=== PATIENT | male | born 1985 | race Caucasian/White ===

== ENCOUNTER 2022-06-14 10:29 | Inpatient (IN) ==
--- NOTE | 2022-06-14 11:45 | XRay Report ---
XR chest 1V portable HISTORY: 37 years-old Male weakness acute weakness COMPARISON: None TECHNIQUE: AP view of the chest FINDINGS: Cardiomediastinal and hilar silhouettes are within normal limits. Mild right hemidiaphragmatic elevat ion. There is no pneumothorax, pleural effusion, airspace consolidation or pulmonary edema. Bones of the chest appear grossly intact. IMPRESSION: No acute process. ACT 112: Negative or not required by law. The above report was generated using voice recognition software. It may contain grammatical, syntax o r spelling errors. Electronically signed by: Tan Hodgson M.D. 06/14/2022 11:42 AM
[2022-06-14 11:50] LABS: Basophils # (auto) 0.07 K/uL (0-0.2); Basophils % (auto) 1.2 %; Eosinophils % (auto) 1.6 %; Hematocrit (blood only) 34.6 % (40.1-51.0); Hemoglobin 12.5 g/dl (14.0-18.0); Immature Granulocytes # (auto) 0.02 K/uL (0.00-0.02); Immature Granulocytes % (auto) 0.3 %; Lymphocytes % (auto) 18.1 %; Macrocytosis Present; Mean Corpuscular Hemoglobin 38.5 pg (25.0-34.0); Mean Corpuscular Hgb Conc 36.1 g/dL (32.0-36.0); Mean Corpuscular Volume 106.5 fL (80.0-100.0); Mean Platelet Volume 11.8 fL (9.4-12.4); Monocytes # (auto) 0.64 K/uL (0.24-0.82); Monocytes % (auto) 10.5 %; Neutrophils # (auto) 4.14 K/uL (1.4-6.5); Neutrophils % (auto) 68.3 %; Platelet Count 74 K/uL (130-400); Platelet Estimate Decreased (Normal); RDW Coefficient of Variation 15.8 % (11.5-14.5); RDW Standard Deviation 62.3 fL (36.4-46.3); Red Blood Count 3.25 M/uL (4.63-6.08); Target Cells 1+; Toxic Vacuolation 1+; White Blood Count 6.07 K/ul (4.8-10.8)
[2022-06-14 11:56] LABS: Albumin Globulin Ratio 0.6 (0.9-2); Albumin Level 2.9 gm/dl (3.4-5.0); BUN Creatinine Ratio 12.2 (10-20); Calcium 8.2 mg/dl (8.5-10.1); Creatinine Clr Calc Pharmacy 95.8 ml/min; Est GFR (African American) 94.4 ml/min; Est GFR (Non-African American) 81.4 ml/min; Globulin 4.9 gm/dl (2.5-4.0); Potassium 3.5 mmol/L (3.5-5.1); Total Protein 7.8 gm/dl (6.0-8.3); Troponin I High Sensitivity 9.2 pg/ml (0-20)
[2022-06-14] MEDS ORDERED: MULTI-VITAMIN INFUSION 10 ML, THIAMINE HCL 100 MG, FOLIC ACID 1 MG in SODIUM CHLORIDE 0... IV ONE (12:16)
[2022-06-14 13:06] LABS: INR 1.9 (0.9-1.1); Prothrombin Time 19.3 Seconds (9.0-12.0)
--- NOTE | 2022-06-14 15:49 | Ultrasound Report ---
US liver HISTORY: 37 years-old Male Acute hepatitis acute right upper quadrant abdominal pain COMPARISON: None TECHNIQUE: Multiple real-time sonographic images of the abdominal right upper quadrant were obtained assessing grayscale appearance and color flow FINDINGS: The pancreas is mostly obscured by bowel gas. The liver measures 14 cm in length with slightly increa sed echogenicity. Patent portal vein with hepatofugal flow. Common bile duct measures 4 mm. Mild gall bladder distention with layering biliary sludge. No shadowing cholelithiasis, wall thickening or chiara cholecystic fluid. Limited exam secondary to patient body habitus. No hydronephrosis of the right kidney identified. IMPRESSION: 1. Heterogeneous morphology of the liver with mildly increased echogenicity. These findings may repre sent hepatic steatosis versus hepatocellular disease. 2. Patent portal vein demonstrates hepatofugal flow. 3. Biliary sludge. No cholelithiasis or sonographic evidence of acute cholecystitis. ACT 112: Negative or not required by law. The above report was generated using voice recognition software. It may contain grammatical, syntax o r spelling errors. Electronically signed by: Tan Hodgson M.D. 06/14/2022 3:47 PM
[2022-06-14] MEDS ORDERED: PHYTONADIONE 5 MG in DEXTROSE 5% 50 ML IV ONE (15:51)
--- NOTE | 2022-06-14 16:52 | Electrocardiogram Report ---
Test Reason : Blood Pressure : / mmHG Vent. Rate : 092 BPM Atrial Rate : 092 BPM P-R Int : 164 ms QRS Dur : 086 ms QT Int : 358 ms P-R-T Axes : 014 051 024 degrees QTc Int : 442 ms Poor data quality, interpretation may be adversely affected Normal sinus rhythm Normal ECG No previous ECGs available Confirmed by Jamie Burgos ([id number]) on 06/14/2022 4:52:36 PM Referred By: Confirmed By:Jamie Burgos
--- NOTE | 2022-06-14 17:04 | History & Physical Report ---
Date of Service June 14, 2022 Assessment & Plan (1) Alcoholic hepatitis: (2) Cirrhosis: (3) Elevated INR: (4) Hyponatremia: (5) Alcoholism: Plan: Patient is 37 y/o M with PMH alcoholism, tobacco use presented to ER from [facility] for abnormal labs. In rehab since 06/08/22. Last ETOH drink 06/08/[address] abdomen pelvis previously noted cirrhosis, portal hypertension In ER afebrile, vitals stable. No leukocytosis, H/H: 12.5/34, Plt: 74, PT:19, INR: 1.9, Na: 131, T bili: 9.0, AST: 88, ALT: 24, Alk Phos: 124, Albumin: 2.9 Liver US: 1. Heterogeneous morphology of the liver with mildly increased echogenicity. These findings may represent hepatic steatosis versus hepatocellular disease. 2. Patent portal vein demonstrates hepatofugal flow. 3. Biliary sludge. No cholelithiasis or sonographic evidence of acute cholecystitis. In ER given banana bag, phytonadione 5mg IV Prednisolone 40mg given Meld NA: 27 Madrey: 41 Hepatitis panel pending Blood cultures pending CT abdomen pelvis pending Lactulose 3 times daily Ultrasound paracentesis GI consult CBC, CMP, liver labs, ammonia, PT/INR in a.m. Alcohol cessation advised Patient has finished Valium taper at rehab. Last drink 6 days ago Boost Nutrition consult Multivitamin, thiamine, folic acid daily Dr. Baum spoke with [facility] as well as [facility]. Awaiting further callback (6) Tobacco use: Plan: Smokes 1ppd Smoking cessation encouraged Denies nicotine patch DVT Prophylaxis SCDs Full Code as per discussion with pt Follows with Dr Stalin Koo in [place] for routine care Pt was seen and care coordinated with Dr Baum. See addendum History of Present Illness Chief Complaint: Abnormal labs Primary Care Provider: Stalin Koo MD Patient is 37 y/o M with PMH alcoholism, tobacco use presented to ER from [facility] for abnormal labs. Patient in [facility] rehab since 06/08/22 for alcohol abuse after family intervention. History obtained from patient, patient's and chart review. Patient was drinking 15-30 beers daily as well as additional hard liquor. Has been drinking since age 17. He reports last ETOH drink was on 06/08/22. Reported patient had been having some confusion at rehab. Just started lactulose yesterday. Had one dose and had 3 BM's. No bowel movement today. Patient denies any abdominal pain. Patient's states in past he has been on lactulose intermittently. reports patient's abdomen appears larger than last week, however patient is unsure. Patient states he slipped out of bed this morning and landed on his knees. Reports has been having some dizziness with walking. Has been feeling weak past several days. Denies hitting head. Denies fever/chills, diaphoresis, nausea, vomiting, ASIF, syncope, vision changes, neck pain, CP, SOB, orthopnea, palpitations, cough, sore throat, choking, layne lgia, rhinorrhea, paresthesias, weakness, extremity weakness, increased extremity edema, rashes, urinary symptoms, melena, hematochezia. Outpatient records reviewed on paper ER chart. Was seen in ER in [place] in 05/22/22 and had abdomen ultrasound: gallbladder sludge. top normal wall thickening. CT abd/pelvis: sigmoid diverticulitis, cirrhosis and portal hypertension 05/12/22 had bilirubin of 3. In 06/10/22: outpatient labs bilirubin on 6.9 and 06/13/22 of 7.5 per chart review. In November 2021 Bilirubin WNL. Allergies Allergy/AdvReac Type Severity Reaction Status Date / Time No Known Allergies Allergy Unverified 06/14/22 13:37 Home Medications Medication Instructions Recorded Confirmed Type clonidine HCl 0.1 mg tablet 0.1 mg PO TID PRN Anxiety 06/14/22 06/14/22 History folic acid 1 mg tablet 1 mg PO DAILY 06/14/22 06/14/22 History food supplemt, lactose-reduced 1 ea PO BID 06/14/22 06/14/22 History (Ensure oral liquid) hydroxyzine pamoate 50 mg capsule 50 mg PO TID PRN LOS 06/14/22 06/14/22 History (Vistaril) lactulose 20 gram/30 mL oral 20 g PO TID 06/14/22 06/14/22 History solution multivitamin 1 tab PO DAILY 06/14/22 06/14/22 History thiamine HCl (vitamin B1) 100 mg 100 mg PO DAILY 06/14/22 06/14/22 History tablet Past Med/Surg History Medical History Alcoholism Tobacco use Surgical History Hx of tonsillectomy Family History Other Cancer Diabetes Hypertension Social History Smoking Status: Current every day smoker Tobacco Type: Cigarettes Cigarettes Per Day: 1 pack or less; Hx Alcohol Use: Yes Alcohol type: beer and hard liquor Hx Substance Use: No Beliefs That Will Affect Care: None Current Living Situation: Spouse and Family Feels Safe at Home: Yes Safety Concerns: Feels Safe At This Time Assistive Devices: None Review of Systems Review of Systems: All systems reviewed & are unremarkable except as noted in HPI & below Physical Exam Physical Exam: General: +ill appearing, WDWN Head: normocephalic, atraumatic Eyes: PERRL, EOM's intact, conjunctiva non-injected, +icteric ENT: normal inspection external ears, nose, mucous membranes moist Neck: supple, trachea midline Lungs: clear, no respiratory distress, no wheezing/rhonchi/rales CV: RRR, no murmur, no pretibial edema Abd: +distended, normal BS, soft, non-tender Ext: no cyanosis, no calf tenderness, +brown discoloration bilateral lower extremities Neuro: Alert and oriented to person, time and knows in hospital, unsure what hospital, no focal deficits noted, normal affect Skin: warm, dry Results & Data Results & Data ([facility]) Vital Signs (Past 12 Hours) Vital Signs Temp Pulse Resp BP Pulse Ox O2 Del Method O2 Flow Rate 06/14/22 14:10 80 23 99 06/14/22 14:00 82 21 98 06/14/22 14:00 115/72 06/14/22 13:50 82 21 98 06/14/22 13:40 79 20 98 06/14/22 13:30 78 20 98 06/14/22 13:20 83 23 97 06/14/22 13:10 80 23 98 06/14/22 13:00 83 19 97 06/14/22 12:50 85 14 98 06/14/22 12:40 88 17 97 06/14/22 12:30 86 18 96 06/14/22 12:30 92/58 L 06/14/22 12:20 86 18 97 06/14/22 12:10 91 H 19 97 06/14/22 12:00 96 H 22 97 06/14/22 12:00 98/59 L Room Air 06/14/22 11:50 91 H 18 112/80 97 Room Air 06/14/22 11:45 94 H 21 96 06/14/22 11:56 Room Air 97 06/14/22 10:33 36.7 C 110 H 18 114/78 99 Room Air Laboratory Results Short CBC 06/14/22 Range/Units 11:15 WBC 6.07 (4.8-10.8) K/ul Hgb 12.5 L (14.0-18.0) g/dl Hct 34.6 L (40.1-51.0) % Plt Count 74 L (130-400) K/uL BMP 06/14/22 11:15 Sodium 131 L Potassium 3.5 Chloride 99 Carbon Dioxide 26 BUN 14 Creatinine 1.15 Glucose 151 H Calcium 8.2 L Liver Function 06/14/22 Range/Units 11:15 Total Bilirubin 9.0 H (0.2-1.0) mg/dl AST 88 H (13-39) U/L ALT 24 (7-52) U/L Alkaline Phosphatase 124 H (34-104) U/L Albumin 2.9 L (3.4-5.0) gm/dl Diagnostic Findings Chest X-Ray 06/14/22 10:57 XR chest 1V portable HISTORY: 37 years-old Male weakness acute weakness COMPARISON: None TECHNIQUE: AP view of the chest FINDINGS: Cardiomediastinal and hilar silhouettes are within normal limits. Mild right hemidiaphragmatic elevation. There is no pneumothorax, pleural effusion, airspace consolidation or pulmonary edema. Bones of the chest appear grossly intact. IMPRESSION: No acute process. ACT 112: Negative or not required by law. The above report was generated using voice recognition software. It may contain grammatical, syntax or spelling errors. Electronically signed by: Tan Hodgson M.D. 06/14/2022 11:42 AM Liver Ultrasound 06/14/22 12:16 US liver HISTORY: 37 years-old Male Acute hepatitis acute right upper quadrant abdominal pain COMPARISON: None TECHNIQUE: Multiple real-time sonographic images of the abdominal right upper quadrant were obtained assessing grayscale appearance and color flow FINDINGS: The pancreas is mostly obscured by bowel gas. The liver measures 14 cm in length with slightly increased echogenicity. Patent portal vein with hepatofugal flow. Common bile duct measures 4 mm. Mild gallbladder distention with layering biliary sludge. No shadowing cholelithiasis, wall thickening or pericholecystic fluid. Limited exam secondary to patient body habitus. No hydronephrosis of the right kidney identified. IMPRESSION: 1. Heterogeneous morphology of the liver with mildly increased echogenicity. These findings may represent hepatic steatosis versus hepatocellular disease. 2. Patent portal vein demonstrates hepatofugal flow. 3. Biliary sludge. No cholelithiasis or sonographic evidence of acute cholecystitis. ACT 112: Negative or not required by law. The above report was generated using voice recognition software. It may contain grammatical, syntax or spelling errors. Electronically signed by: Tan Hodgson M.D. 06/14/2022 3:47 PM Supervising Physician Co-Signing Physician Notes Pt seen and examined by me, care coordinated with Estefany Xie PA-C, please refer to her note above for detail. Patient is a 37 y/o M with no significant medical history besides history of alcoholism, and tobacco use, who presents from [facility] for abnormal labs. [facility] for alcohol abuse after family intervention. Patient reports drinking since he was 17-year-old. About a week ago he was told by his family physician that he will from his liver disease and he is not a candidate for transplant because of his drinking. Patient decided to go to rehab. Patient's and sister present at the bedside. Pt reports last ETOH drink was on 06/08/22. Patient had been having some confusion at rehab. His ammonia level was found elevated, and he was started on lactulose. Today he fell from bed, and was sent to ER due to feeling dizzy and weak. Patient denies any abdominal pain. Outpatient records reviewed on paper ER chart. Was seen in ER in [place] in 05/22/22 and had abdomen ultrasound: gallbladder sludge. top normal wall thickening. CT abd/pelvis: sigmoid diverticulitis, cirrhosis and portal hypertension He was diagnosed with diverticulitis in ER in [place], and discharged with Augmentin. Patient reports finishing antibiotic course. 05/12/22 had bilirubin of 3. In 06/10/22: outpatient labs bilirubin on 6.9 and 06/13/22 of 7.5 per chart review. In November 2021 bilirubin WNL. Currently his sodium is 131. Bilirubin 9. INR 1.9. AST 88, ALT 24, PT 19.3. His meld score is 26 and Madrey score 42. Given his high meld score and Madrey score discussed with hepatology specialist at [facility] and at [facility]. Recommend to continue to monitor the patient. Prednisone for alcoholic hepatitis would be recommended however infection needs to be ruled out. UA negative in ER. Chest x-ray negative. Not likely SBP as patient has no abdominal pain. Known history of diverticulitis in May, as above. CT abdomen pelvis ordered. GI consulted. MD Sarika
--- NOTE | 2022-06-14 17:05 | Emergency Department Note ---
Impression & Plan Alcoholic hepatitis, Elevated INR, Hyponatremia ED Provider Note CHIEF COMPLAINT: Worsening liver numbers, dizziness, fall HISTORY OF PRESENT ILLNESS: This 37-year-old male patient presents to the emergency department with complaints of dizziness, worsening liver numbers and a fall today. The patient is at [facility] due to alcohol dependency. Patient began to appear jaundiced and had laboratory work performed. Per the records from the rehabilitation facility, the patient's bilirubin was 6 several days ago and 9 yesterday. They receive the results today. They were also concerned about a pneumonia of 80. The patient did start lactulose yesterday. He states he feels "drunk" but has not had anything to drink in over 10 days. He has been drinking since the age of 15 sometimes upwards of 15 beers a day. He states he was weak today getting out of bed and fell to the floor. He denies any significant injuries. He denies any blood in the stools or vomiting. REVIEW OF SYSTEMS: A review of systems was performed with positives and pertinent negatives listed in the history of present illness. 10 systems were reviewed and are otherwise negative. ALLERGIES: see below MEDICATIONS: see below PMH: see below SOCIAL HISTORY: see below DDx: PBC, cirrhosis of the liver, dehydration, metabolic abnormality, hypo/hyperglycemia, electrolyte disturbance, anemia, biliary obstruction, toxicologic, neurologic, as well as other pathologies. PHYSICAL EXAM: Vital signs reviewed. General: Chronically ill-appearing 37-year-old male HEENT: Positive scleral icterus, PERRLA, neck supple. Moist mucous membranes Cardiovascular: Regular rate and rhythm, no extra sounds. Pulmonary: Clear to auscultation bilaterally, normal work of breathing. Abdomen: Soft, distended, minimally tender diffusely, positive bowel sounds. Musculoskeletal: Atraumatic, no peripheral edema. Neurologic: Patient awake alert and oriented x 3, speech is clear Skin: Warm, dry, no rash EMERGENCY DEPARTMENT COURSE/MDM: This patient was evaluated and appeared to be in no significant distress. IV access was obtained and laboratory work was drawn. Patient is clearly jaundiced on exam. Ultrasound the right upper quadrant was performed and reveals findings consistent with liver disease versus hepatic steatosis but no evidence of portal vein thrombus. Laboratory work r eveals a total bili of 9 with an INR of 1.9. Platelet count is depleted at 74. The patient does not show any signs of alcohol withdrawal. I do feel the patient requires consultation with gastroenterology. The hospitalist service has been consulted for admission and further management. I did explain my findings and the plan to the patient and his family at the bedside. They are expressed understanding and agreed. MONITORING: An order for cardiac monitoring was placed and the patient is noted to be in a normal sinus rhythm at 76 beats per minute. RADIOLOGY: See below EKG: Normal sinus rhythm at 92 bpm. QTc is 442. Normal ST segments. No PVC, no PAC. No previous for comparison. DISPOSITION: Admission Past Med/Surg History Medical History Alcoholism Tobacco use Surgical History Hx of tonsillectomy Family History Other Cancer Diabetes Hypertension Social History Smoking Status: Current every day smoker Tobacco Type: Cigarettes Cigarettes Per Day: 1ppd; Hx Alcohol Use: Yes Hx Substance Use: No Feels Safe at Home: Yes Allergies Allergies Allergy/AdvReac Type Severity Reaction Status Date / Time No Known Allergies Allergy Unverified 06/14/22 13:37 Home Meds Home Medications Medication Instructions Recorded Confirmed clonidine HCl 0.1 mg tablet 0.1 mg PO TID PRN Anxiety 06/14/22 06/14/22 folic acid 1 mg tablet 1 mg PO DAILY 06/14/22 06/14/22 food supplemt, lactose-reduced 1 ea PO BID 06/14/22 06/14/22 (Ensure oral liquid) hydroxyzine pamoate 50 mg capsule 50 mg PO TID PRN LOS 06/14/22 06/14/22 (Vistaril) lactulose 20 gram/30 mL oral 20 g PO TID 06/14/22 06/14/22 solution multivitamin 1 tab PO DAILY 06/14/22 06/14/22 thiamine HCl (vitamin B1) 100 mg 100 mg PO DAILY 06/14/22 06/14/22 tablet Results & Data (ED) Vital Signs Vital Signs - 24 hr 06/14/22 10:33 06/14/22 11:56 06/14/22 11:45 Temperature 36.7 C Temperature Source Temporal Artery Scan Pulse Rate 110 H 94 H Pulse Rate from SpO2 Sensor 94 H Respiratory Rate 18 21 Blood Pressure 114/78 Blood Pressure Mean 90 Blood Pressure Position Sitting Pulse Oximetry 99 96 Oxygen Delivery Method Room Air Room Air Oxygen Flow Rate 97 Sepsis Recent Fever Within 48 Hours No Sepsis New/Unexplained Change in Mental Status No Sepsis Action Taken by Nursing No Action Required 06/14/22 11:50 06/14/22 12:00 06/14/22 12:00 Temperature Temperature Source Pulse Rate 91 H 96 H Pulse Rate from SpO2 Sensor 91 H 96 H Respiratory Rate 18 22 Blood Pressure 112/80 98/59 L Blood Pressure Mean 90 72 Blood Pressure Position Pulse Oximetry 97 97 Oxygen Delivery Method Room Air Room Air Oxygen Flow Rate Sepsis Recent Fever Within 48 Hours Sepsis New/Unexplained Change in Mental Status Sepsis Action Taken by Nursing 06/14/22 12:10 06/14/22 12:20 06/14/22 12:30 Temperature Temperature Source Pulse Rate 91 H 86 Pulse Rate from SpO2 Sensor 91 H 87 Respiratory Rate 19 18 Blood Pressure 92/58 L Blood Pressure Mean 69 Blood Pressure Position Pulse Oximetry 97 97 Oxygen Delivery Method Oxygen Flow Rate Sepsis Recent Fever Within 48 Hours Sepsis New/Unexplained Change in Mental Status Sepsis Action Taken by Nursing 06/14/22 12:30 06/14/22 12:40 06/14/22 12:50 Temperature Temperature Source Pulse Rate 86 88 85 Pulse Rate from SpO2 Sensor 86 87 84 Respiratory Rate 18 17 14 Blood Pressure Blood Pressure Mean Blood Pressure Position Pulse Oximetry 96 97 98 Oxygen Delivery Method Oxygen Flow Rate Sepsis Recent Fever Within 48 Hours Sepsis New/Unexplained Change in Mental Status Sepsis Action Taken by Nursing 06/14/22 13:00 06/14/22 13:10 06/14/22 13:20 Temperature Temperature Source Pulse Rate 83 80 83 Pulse Rate from SpO2 Sensor 83 80 82 Respiratory Rate 19 23 23 Blood Pressure Blood Pressure Mean Blood Pressure Position Pulse Oximetry 97 98 97 Oxygen Delivery Method Oxygen Flow Rate Sepsis Recent Fever Within 48 Hours Sepsis New/Unexplained Change in Mental Status Sepsis Action Taken by Nursing 06/14/22 13:30 06/14/22 13:40 06/14/22 13:50 Temperature Temperature Source Pulse Rate 78 79 82 Pulse Rate from SpO2 Sensor 78 80 83 Respiratory Rate 20 20 21 Blood Pressure Blood Pressure Mean Blood Pressure Position Pulse Oximetry 98 98 98 Oxygen Delivery Method Oxygen Flow Rate Sepsis Recent Fever Within 48 Hours Sepsis New/Unexplained Change in Mental Status Sepsis Action Taken by Nursing 06/14/22 14:00 06/14/22 14:00 06/14/22 14:10 Temperature Temperature Source Pulse Rate 82 80 Pulse Rate from SpO2 Sensor 82 80 Respiratory Rate 21 23 Blood Pressure 115/72 Blood Pressure Mean 86 Blood Pressure Position Pulse Oximetry 98 99 Oxygen Delivery Method Oxygen Flow Rate Sepsis Recent Fever Within 48 Hours Sepsis New/Unexplained Change in Mental Status Sepsis Action Taken by Nursing 06/14/22 16:45 06/14/22 17:00 06/14/22 17:00 Temperature Temperature Source Pulse Rate 76 81 Pulse Rate from SpO2 Sensor Respiratory Rate 18 20 Blood Pressure 105/52 L 111/66 111/66 Blood Pressure Mean 69 81 81 Blood Pressure Position Pulse Oximetry 96 96 Oxygen Delivery Method Room Air Room Air Oxygen Flow Rate Sepsis Recent Fever Within 48 Hours Sepsis New/Unexplained Change in Mental Status Sepsis Action Taken by Nursing 06/14/22 19:30 Temperature Temperature Source Pulse Rate 81 Pulse Rate from SpO2 Sensor 81 Respiratory Rate 23 Blood Pressure 107/65 Blood Pressure Mean 79 Blood Pressure Position Pulse Oximetry 96 Oxygen Delivery Method Oxygen Flow Rate Sepsis Recent Fever Within 48 Hours Sepsis New/Unexplained Change in Mental Status Sepsis Action Taken by [facility] Medications Current Medication List: was personally reviewed by me Laboratory Data Attestation: I reviewed the patient's lab results. Result diagrams: 06/14/22 11:15 06/14/22 11:15 Lab Results 06/14/22 06/14/22 06/14/22 Range/Units 11:15 11:15 11:15 WBC 6.07 (4.8-10.8) K/ul RBC 3.25 L (4.63-6.08) M/uL Hgb 12.5 L (14.0-18.0) g/dl Hct 34.6 L (40.1-51.0) % MCV 106.5 H (80.0-100.0) fL MCH 38.5 H (25.0-34.0) pg MCHC 36.1 H (32.0-36.0) g/dL RDW Std Deviation 62.3 H (36.4-46.3) fL RDW Coeff of Olivia 15.8 H (11.5-14.5) % Plt Count 74 L (130-400) K/uL MPV 11.8 (9.4-12.4) fL Immature Gran % (Auto) 0.3 % Neut % (Auto) 68.3 % Lymph % (Auto) 18.1 % Traverse % (Auto) 10.5 % Eos % (Auto) 1.6 % Baso % (Auto) 1.2 % Neut # (Auto) 4.14 (1.4-6.5) K/uL Lymph # (Auto) 1.10 L (1.2-3.4) K/uL Traverse # (Auto) 0.64 (0.24-0.82) K/uL Eos # (Auto) 0.10 (0-0.50) K/uL Baso # (Auto) 0.07 (0-0.2) K/uL Immature Gran # (Auto) 0.02 (0.00-0.02) K/uL Toxic Vacuolation 1+ Platelet Estimate Decreased L (Normal) Macrocytosis Present Target Cells 1+ PT (9.0-12.0) Seconds INR (0.9-1.1) Sodium 131 L (136-145) mmol/L Potassium 3.5 (3.5-5.1) mmol/L Chloride 99 (98-107) mmol/L Carbon Dioxide 26 (21-32) mmol/L Anion Gap 6 (3-11) BUN 14 (6-23) mg/dl Creatinine 1.15 (0.6-1.4) mg/dl Est Cr Clr Drug Dosing 95.8 ml/min Est GFR ( Amer) 94.4 ml/min Est GFR (Non-Af Amer) 81.4 ml/min BUN/Creatinine Ratio 12.2 (10-20) Glucose 151 H (70-99(Fasting)) mg/dl Calcium 8.2 L (8.5-10.1) mg/dl Phosphorus (2.5-4.9) mg/dl Magnesium (1.7-2.4) mg/dl Total Bilirubin 9.0 H (0.2-1.0) mg/dl AST 88 H (13-39) U/L ALT 24 (7-52) U/L Alkaline Phosphatase 124 H (34-104) U/L Ammonia 44.0 (18-72) umol/L Troponin I High Sens 9.2 (0-20) pg/ml Total Protein 7.8 (6.0-8.3) gm/dl Albumin 2.9 L (3.4-5.0) gm/dl Globulin 4.9 H (2.5-4.0) gm/dl Albumin/Globulin Ratio 0.6 L (0.9-2) TSH (0.300-4.500) uIu/ml Urine Color Urine Appearance (Clear) Urine pH (4.5-7.5) Ur Specific [place] (1.000-1.030) Urine Protein (Negative) Urine Glucose (UA) (Negative) Urine Ketones (Negative) Urine Blood (Negative) Urine Nitrite (Negative) Urine Bilirubin (Negative) Urine Urobilinogen (Negative) Ur Leukocyte Esterase (Negative) Urine WBC (Auto) (0-5) /hpf Urine RBC (Auto) (0-4) /hpf U Hyaline Cast (Auto) (0-5) /lpf U Epithel Cells (Auto) (0-5) /lpf Urine Bacteria (Auto) (Negative) SARS-CoV-2, RNA, NAAT (NEGATIVE) 06/14/22 06/14/22 06/14/22 Range/Units 11:15 11:15 12:37 WBC (4.8-10.8) K/ul RBC (4.63-6.08) M/uL Hgb (14.0-18.0) g/dl Hct (40.1-51.0) % MCV (80.0-100.0) fL MCH (25.0-34.0) pg MCHC (32.0-36.0) g/dL RDW Std Deviation (36.4-46.3) fL RDW Coeff of Olivia (11.5-14.5) % Plt Count (130-400) K/uL MPV (9.4-12.4) fL Immature Gran % (Auto) % Neut % (Auto) % Lymph % (Auto) % Traverse % (Auto) % Eos % (Auto) % Baso % (Auto) % Neut # (Auto) (1.4-6.5) K/uL Lymph # (Auto) (1.2-3.4) K/uL Traverse # (Auto) (0.24-0.82) K/uL Eos # (Auto) (0-0.50) K/uL Baso # (Auto) (0-0.2) K/uL Immature Gran # (Auto) (0.00-0.02) K/uL Toxic Vacuolation Platelet Estimate (Normal) Macrocytosis Target Cells PT 19.3 H (9.0-12.0) Seconds INR 1.9 H (0.9-1.1) Sodium (136-145) mmol/L Potassium (3.5-5.1) mmol/L Chloride (98-107) mmol/L Carbon Dioxide (21-32) mmol/L Anion Gap (3-11) BUN (6-23) mg/dl Creatinine (0.6-1.4) mg/dl Est Cr Clr Drug Dosing ml/min Est GFR ( Amer) ml/min Est GFR (Non-Af Amer) ml/min BUN/Creatinine Ratio (10-20) Glucose (70-99(Fasting)) mg/dl Calcium (8.5-10.1) mg/dl Phosphorus 2.8 (2.5-4.9) mg/dl Magnesium 1.4 L (1.7-2.4) mg/dl Total Bilirubin (0.2-1.0) mg/dl AST (13-39) U/L ALT (7-52) U/L Alkaline Phosphatase (34-104) U/L Ammonia (18-72) umol/L Troponin I High Sens (0-20) pg/ml Total Protein (6.0-8.3) gm/dl Albumin (3.4-5.0) gm/dl Globulin (2.5-4.0) gm/dl Albumin/Globulin Ratio (0.9-2) TSH 4.545 H (0.300-4.500) uIu/ml Urine Color Urine Appearance (Clear) Urine pH (4.5-7.5) Ur Specific [place] (1.000-1.030) Urine Protein (Negative) Urine Glucose (UA) (Negative) Urine Ketones (Negative) Urine Blood (Negative) Urine Nitrite (Negative) Urine Bilirubin (Negative) Urine Urobilinogen (Negative) Ur Leukocyte Esterase (Negative) Urine WBC (Auto) (0-5) /hpf Urine RBC (Auto) (0-4) /hpf U Hyaline Cast (Auto) (0-5) /lpf U Epithel Cells (Auto) (0-5) /lpf Urine Bacteria (Auto) (Negative) SARS-CoV-2, RNA, NAAT (NEGATIVE) 12/09/22 12/09/22 Range/Units 15:56 17:43 WBC (4.8-10.8) K/ul RBC (4.63-6.08) M/uL Hgb (14.0-18.0) g/dl Hct (40.1-51.0) % MCV (80.0-100.0) fL MCH (25.0-34.0) pg MCHC (32.0-36.0) g/dL RDW Std Deviation (36.4-46.3) fL RDW Coeff of Olivia (11.5-14.5) % Plt Count (130-400) K/uL MPV (9.4-12.4) fL Immature Gran % (Auto) % Neut % (Auto) % Lymph % (Auto) % [place] % (Auto) % Eos % (Auto) % Baso % (Auto) % Neut # (Auto) (1.4-6.5) K/uL Lymph # (Auto) (1.2-3.4) K/uL [place] # (Auto) (0.24-0.82) K/uL Eos # (Auto) (0-0.50) K/uL Baso # (Auto) (0-0.2) K/uL Immature Gran # (Auto) (0.00-0.02) K/uL Toxic Vacuolation Platelet Estimate (Normal) Macrocytosis Target Cells PT (9.0-12.0) Seconds INR (0.9-1.1) Sodium (136-145) mmol/L Potassium (3.5-5.1) mmol/L Chloride (98-107) mmol/L Carbon Dioxide (21-32) mmol/L Anion Gap (3-11) BUN (6-23) mg/dl Creatinine (0.6-1.4) mg/dl Est Cr Clr Drug Dosing ml/min Est GFR ( Amer) ml/min Est GFR (Non-Af Amer) ml/min BUN/Creatinine Ratio (10-20) Glucose (70-99(Fasting)) mg/dl Calcium (8.5-10.1) mg/dl Phosphorus (2.5-4.9) mg/dl Magnesium (1.7-2.4) mg/dl Total Bilirubin (0.2-1.0) mg/dl AST (13-39) U/L ALT (7-52) U/L Alkaline Phosphatase (34-104) U/L Ammonia (18-72) umol/L Troponin I High Sens (0-20) pg/ml Total Protein (6.0-8.3) gm/dl Albumin (3.4-5.0) gm/dl Globulin (2.5-4.0) gm/dl Albumin/Globulin Ratio (0.9-2) TSH (0.300-4.500) uIu/ml Urine Color Dark Yellow Urine Appearance Clear (Clear) Urine pH 6.5 (4.5-7.5) Ur Specific [place] 1.013 (1.000-1.030) Urine Protein Trace H (Negative) Urine Glucose (UA) Negative (Negative) Urine Ketones Negative (Negative) Urine Blood Negative (Negative) Urine Nitrite Positive A (Negative) Urine Bilirubin 3+ H (Negative) Urine Urobilinogen Positive H (Negative) Ur Leukocyte Esterase Trace H (Negative) Urine WBC (Auto) 1-5 (0-5) /hpf Urine RBC (Auto) 0-4 (0-4) /hpf U Hyaline Cast (Auto) 1-5 (0-5) /lpf U Epithel Cells (Auto) 10-20 H (0-5) /lpf Urine Bacteria (Auto) Negative (Negative) SARS-CoV-2, RNA, NAAT NEGATIVE (NEGATIVE) Administered Medications Discontinued Medications Multivitamins 10 ml/ Thiamine HCl 100 mg/ Folic Acid 1 mg/Sodium Chloride 1,011.2 mls @ 1,011.2 mls/hr IV .Q1H ONE Stop: 06/14/22 13:15 Last Infusion: 06/14/22 13:41 Dose: 0 mls/hr Documented By: [facility] Admin: 06/14/22 12:41 Dose: 1,011.2 mls/hr Documented By: EITAN Phytonadione 5 mg/ Dextrose 50.5 mls @ 101 mls/hr IV ONE ONE Stop: 06/14/22 16:20 Last Infusion: 06/14/22 17:27 Dose: 0 mls/hr Documented By: Admin: 06/14/22 16:46 Dose: 101 mls/hr Documented By: EITAN Prednisolone Sodium Phosphate (Prednisolone Sod Phosphate 15 Mg/5 Ml) 40 mg PO NOW STA Stop: 06/14/22 17:22 Last Admin: 06/14/22 18:02 Dose: 40 mg Documented By: [facility] Imaging Data Radiologist's Impression: Chest X-Ray 06/14/22 10:57 XR chest 1V portable HISTORY: 37 years-old Male weakness acute weakness COMPARISON: None TECHNIQUE: AP view of the chest FINDINGS: Cardiomediastinal and hilar silhouettes are within normal limits. Mild right hemidiaphragmatic elevation. There is no pneumothorax, pleural effusion, airspac e consolidation or pulmonary edema. Bones of the chest appear grossly intact. IMPRESSION: No acute process. ACT 112: Negative or not required by law. The above report was generated using voice recognition software. It may contain grammatical, syntax or spelling errors. Electronically signed by: Tan Hodgson M.D. 06/14/2022 11:42 AM Liver Ultrasound 06/14/22 12:16 US liver HISTORY: 37 years-old Male Acute hepatitis acute right upper quadrant abdominal pain COMPARISON: None TECHNIQUE: Multiple real-time sonographic images of the abdominal right upper quadrant were obtained assessing grayscale appearance and color flow FINDINGS: The pancreas is mostly obscured by bowel gas. The liver measures 14 cm in length with slightly increased echogenicity. Patent portal vein with hepatofugal flow. Common bile duct measures 4 mm. Mild gallbladder distention with layering biliary sludge. No shadowing cholelithiasis, wall thickening or pericholecystic fluid. Limited exam secondary to patient body habitus. No hydronephrosis of the right kidney identified. IMPRESSION: 1. Heterogeneous morphology of the liver with mildly increased echogenicity. These findings may represent hepatic steatosis versus hepatocellular disease. 2. Patent portal vein demonstrates hepatofugal flow. 3. Biliary sludge. No cholelithiasis or sonographic evidence of acute ch olecystitis. ACT 112: Negative or not required by law. The above report was generated using voice recognition software. It may contain grammatical, syntax or spelling errors. Electronically signed by: Tan Hodgson M.D. 06/14/2022 3:47 PM Blood Pressure Blood Pressure Findings: Normal blood pressure Blood Pressure Disposition: did not require urgent referral Discharge Plan Visit Data Chief Complaint: Dizziness Stated Complaint: DIZZY ED Provider: Nery Clarke Discharge Problem: Alcoholic hepatitis, Elevated INR, Hyponatremia Patient Disposition: Admitted As Inpatient Forms Stand Alone Forms: My [facility] Prescriptions Prescriptions: No Action multivitamin Tablet 1 tab PO DAILY clonidine HCl 0.1 mg Tablet 0.1 mg PO TID PRN (Reason: Anxiety ) thiamine HCl (vitamin B1) 100 mg Tablet 100 mg PO DAILY hydroxyzine pamoate [Vistaril] 50 mg Capsule 50 mg PO TID PRN (Reason: LOS) folic acid 1 mg Tablet 1 mg PO DAILY Ensure Liquid 1 ea PO BID lactulose 20 gram/30 mL Solution 20 g PO TID Referrals Referrals: Stalin Koo MD [Primary Care Provider] - : Alcoholic hepatitis Qualifiers: Ascites presence: unspecified Qualified Code(s): K70.10 - Alcoholic hepatitis without ascites
[2022-06-14] MEDS ORDERED: prednisoLONE sod phosphate 15 MG/5 ML PO STA (17:21)
[2022-06-14 18:05] LABS: Appearance Urine Clear (Clear); Bacteria Urine Automated Negative (Negative); Blood Urine Negative (Negative); Color Urine Dark Yellow; Glucose Urine UA Negative (Negative); Ketones Urine Negative (Negative); Leukocyte Esterase Urine Trace (Negative); Nitrite Urine Positive (Negative); Protein Urine Trace (Negative); RBC Urine Automated 0-4 /hpf (0-4); Specific Gravity Urine 1.013 (1.000-1.030); Urobilinogen Urine Positive (Negative); pH Urine 6.5 (4.5-7.5)
[2022-06-14 18:21] LABS: Bilirubin Urine 3+ (Negative)
[2022-06-14 19:04] LABS: Magnesium 1.4 mg/dl (1.7-2.4); Phosphorus 2.8 mg/dl (2.5-4.9)
--- NOTE | 2022-06-14 20:07 | CT Scan Report ---
CT SCAN OF THE ABDOMEN AND PELVIS WITHOUT IV CONTRAST CLINICAL HISTORY: Acute hepatitis. Alcohol abuse. Generalized abdominal pain. COMPARISON STUDY: Abdominal ultrasound dated 06/14/2022. TECHNIQUE: CT scan of the abdomen and pelvis is performed from the lung bases to the proximal femora. Images are reviewed in the axial, sagittal, and coronal planes. IV contrast was not administered for this examination. Note that the examination was performed in suboptimal fashion without oral and IV contrast. A dose lowering technique was utilized adhering to the principles of ALARA. CT DOSE: 746.92 mGy.cm FINDINGS: Lung bases: The heart is top normal in size and without pericardial effusion. The coronary arteries a re densely calcified. The lung bases are clear noting dependent atelectasis. Gynecomastia is noted. Liver: The unenhanced liver is cirrhotic in morphology, with hypertrophy of the left lobe and caudate as well as nodularity of the surface contour. Diffuse edematous attenuation indicates steatosis. The re is no intrahepatic biliary ductal dilatation. A 12 mm cyst is incidentally noted in the left lobe. Gallbladder: The gallbladder is distended. Layering hyperdense material may represent stones or sludg e. There is no wall thickening or surrounding inflammation to suggest acute cholecystitis. Spleen: The spleen is enlarged measuring 15.4 cm in length. There are large perisplenic collaterals w ith evidence of a splenorenal shunt. Pancreas: The unenhanced pancreas is grossly unremarkable. Adrenal glands: Unremarkable. Kidneys: The unenhanced kidneys are normal in size and without hydronephrosis. There are no renal julito culi identified. There is no evidence of contour deforming renal mass lesion. Abdominal vasculature: The abdominal aorta is normal in course and caliber noting moderate and advanc ed atherosclerotic calcification. Bowel: There is mild sigmoid diverticulosis. There is wall thickening with pericolonic inflammation a nd fluid involving the proximal sigmoid colon consistent with acute diverticulitis. A 1.8 cm pocket o f complex fluid or nodularity adjacent to the sigmoid is seen on image #[id number]. There is mild to moderat e colonic fecal retention. No bowel obstruction is seen. The appendix is well-visualized and normal. Peritoneum: There is no intraperitoneal free air or abdominal ascites. Lymphadenopathy: Mildly enlarged upper abdominal lymph nodes are nonspecific and likely due to chroni c liver disease. Pelvic viscera: The bladder, prostate, and seminal vesicles are normal as visualized. Skeletal structures: No lytic or blastic lesions are seen. 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 IMPRESSION: 1. There is mild sigmoid diverticulosis with findings suggestive of acute sigmoid diverticulitis. Non emergent follow-up with colonoscopy is recommended for further evaluation of the underlying colon. 2. No intraperitoneal free air is seen. 3. There is a 1.8 cm pocket of complex fluid or nodularity adjacent to the sigmoid colon. A small abs cess is not excluded. This is not well evaluated without IV contrast. 4. The liver is cirrhotic in morphology with evidence of steatosis. 5. Splenomegaly, perisplenic varices, and a splenorenal shunt indicate portal hypertension. 6. Markedly distended gallbladder with evidence of stones/sludge. There is no definitive CT evidence of acute cholecystitis. Clinical and laboratory correlation will be required. 7. Marked and age-advanced coronary artery calcification. Consider nonemergent cardiology follow-up. 8. Additional findings as above. ACT 112: Negative or not required by law. Electronically signed by: Dangelo Wong M.D. 06/14/2022 8:05 PM
[2022-06-14] MEDS ORDERED: LORazepam 1 MG TAB PO PRN (23:01)
[2022-06-14] MEDS ORDERED: cefTRIAXone SODIUM 1,000 MG in DEXTROSE 5% 50 ML IV SCH (23:01)
[2022-06-14] MEDS ORDERED: ONDANSETRON INJ 2 MG/ML 2 ML VIAL IV PRN (23:01)
[2022-06-14] MEDS ORDERED: cloNIDine HCL 0.1 MG TAB PO PRN (23:01)
[2022-06-15] MEDS: FOLIC ACID 1 MG in SYRINGE 9.8 ML IV SCH ×2 (00:02→09:01)
[2022-06-15] MEDS: THIAMINE HCL 100 MG in SYRINGE 9 ML IV SCH ×2 (00:02→09:00)
[2022-06-15] MEDS: LACTULOSE SYRUP 20 GM/30 ML UDC PO SCH ×4 (00:02→19:53)
[2022-06-15] MEDS: cefTRIAXone SODIUM 2,000 MG in DEXTROSE 5% 50 ML IV SCH ×2 (00:07→23:15)
[2022-06-15 06:13] LABS: INR 1.5 (0.9-1.1); Prothrombin Time 15.6 Seconds (9.0-12.0)
[2022-06-15 06:30] LABS: Albumin Globulin Ratio 0.6 (0.9-2); Albumin Level 2.8 gm/dl (3.4-5.0); BUN Creatinine Ratio 18.9 (10-20); Bilirubin Direct 4.6 mg/dl (0-0.2); Bilirubin,Total 8.6 mg/dl (0.2-1.0); Calcium 8.4 mg/dl (8.5-10.1); Est GFR (African American) 137.5 ml/min; Est GFR (Non-African American) 118.7 ml/min; Globulin 4.8 gm/dl (2.5-4.0); Magnesium 1.5 mg/dl (1.7-2.4); Phosphorus 3.5 mg/dl (2.5-4.9); Total Protein 7.6 gm/dl (6.0-8.3)
[2022-06-15 07:02] LABS: Hematocrit (blood only) 32.7 % (40.1-51.0); Mean Corpuscular Hgb Conc 36.7 g/dL (32.0-36.0); Mean Corpuscular Volume 103.5 fL (80.0-100.0); Mean Platelet Volume 11.6 fL (9.4-12.4); Platelet Count 75 K/uL (130-400); RDW Standard Deviation 57.8 fL (36.4-46.3); Red Blood Count 3.16 M/uL (4.63-6.08); White Blood Count 4.27 K/ul (4.8-10.8)
[2022-06-15] MEDS ORDERED: MAGNESIUM SULFATE / D5W 1 GM/100 ML BAG IV SCH (07:45)
--- NOTE | 2022-06-15 08:10 | Hospitalist Progress Note ---
Date of Service June 15, 2022 Assessment & Plan (1) Alcoholic hepatitis: (2) Cirrhosis: (3) Elevated INR: (4) Hyponatremia: (5) Alcoholism: Plan: Patient is 37 y/o M with H alcoholism, tobacco use presented to ER from [facility] for abnormal labs. In rehab since 06/08/22. Last ETOH drink 06/08/[address] abdomen pelvis previously noted cirrhosis, portal hypertension In ER afebrile, vitals stable. No leukocytosis, H/H: 12.5/34, Plt: 74, PT:19, INR: 1.9, Na: 131, T bili: 9.0, AST: 88, ALT: 24, Alk Phos: 124, Albumin: 2.9 Liver US: 1. Heterogeneous morphology of the liver with mildly increased echogenicity. These findings may represent hepatic steatosis versus hepatocellular disease. 2. Patent portal vein demonstrates hepatofugal flow. 3. Biliary sludge. No cholelithiasis or sonographic evidence of acute cholecystitis. In ER given banana bag, phytonadione 5mg IV Prednisolone 40mg given Meld score - 26 on admission Maddrey: 42 on admission Hepatitis panel pending Blood cultures pending Boost Nutrition consult Multivitamin, thiamine, folic acid daily Lactulose 3 times daily- continue CT abdomen pelvis 1. There is mild sigmoid diverticulosis with findings suggestive of acute sigmoid diverticulitis. Nonemergent follow-up with colonoscopy is recommended for further evaluation of the underlying colon. 2. No intraperitoneal free air is seen. 3. There is a 1.8 cm pocket of complex fluid or nodularity adjacent to the sigmoid colon. A small abscess is not excluded. This is not well evaluated without IV contrast. 4. The liver is cirrhotic in morphology with evidence of steatosis. 5. Splenomegaly, perisplenic varices, and a splenorenal shunt indicate portal hypertension. 6. Markedly distended gallbladder with evidence of stones/sludge. There is no definitive CT evidence of acute cholecystitis. Clinical and laboratory correlation will be required. 7. Marked and age-advanced coronary artery calcification. Consider nonemergent cardiology follow-up. GI and surgery consulted -Patient with diverticulitis, not likely abscess, also not likely cholecystitis - recommend to continue with IV antibiotics - obtain MRCP MRCP 1. No biliary ductal dilatation. No common bile duct calculi. 2. Suspected cirrhosis. Evidence for portal hypertension including splenomegaly and a splenorenal shunt. 3. Distended gallbladder containing sludge. However, no convincing evidence for acute cholecystitis. 4. Pancreas divisum. No pancreatic ductal dilatation. No peripancreatic fluid. Monitor CBC, CMP, liver labs, ammonia, PT/INR 06/15 -overall patient reports to feel better. MELD score - 23, Madrey score 25 Alcohol cessation advised Patient has finished Valium taper at rehab. Last drink 6 days ago (prior to admission) (6) Tobacco use: Plan: Smokes 1ppd Smoking cessation encouraged Denies nicotine patch DVT Prophylaxis SCDs Full Code as per discussion with pt Follows with Dr Stalin Koo in [place], [place] for routine care Admission and Anticipated Discharge Date Admission Date: June 14, 2022 Subjective Patient seen in follow-up of decompensated cirrhosis/alcoholic hepatitis. CT scan obtained overnight, shows possible diverticular abscess. Patient denies any abdominal pain, also denies any fevers chills chest pain shortness of breath. Denies nausea or vomiting. Review of Systems Review of Systems: All systems reviewed & are unremarkable except as noted in Subjective Physical Exam Physical Exam: General: + chronically ill appearing, obese M, jaundiced Head: normocephalic, atraumatic Eyes: PERRL, EOM's intact, conjunctiva non-injected, +icteric ENT: normal inspection external ears, nose, mucous membranes moist Neck: supple Lungs: clear, no respiratory distress, no wheezing/rhonchi/rales CV: RRR, no murmur, no pretibial edema Abd: +distended, normal BS, soft, non-tender Ext: +brown discoloration bilateral lower extremities Neuro: Alert and oriented to person, time, no focal deficits noted, normal affect, moves extremities Skin: warm, dry Results & Data Results & Data ([facility]) Vital Signs (Past 12 Hours) Vital Signs Temp Pulse Pulse Resp BP BP Pulse Ox 06/15/22 07:00 36.5 C 84 18 117/72 97 06/15/22 02:40 36.5 C 72 16 133/86 97 06/15/22 02:14 72 06/14/22 22:45 36.5 C 83 16 128/90 98 06/14/22 22:31 134/81 06/14/22 22:31 77 14 06/14/22 22:30 65 17 96 06/14/22 22:00 69 15 97 06/14/22 22:00 129/80 06/14/22 21:30 65 15 95 06/14/22 21:30 137/86 06/14/22 21:00 69 12 97 06/14/22 21:00 129/82 06/14/22 20:30 73 18 96 06/14/22 20:30 110/67 O2 Del Method 06/15/22 07:00 Room Air 06/15/22 02:40 Room Air 06/15/22 02:14 06/14/22 22:45 Room Air 06/14/22 22:31 06/14/22 22:31 06/14/22 22:30 06/14/22 22:00 06/14/22 22:00 06/14/22 21:30 06/14/22 21:30 06/14/22 21:00 06/14/22 21:00 06/14/22 20:30 06/14/22 20:30 Laboratory Results 06/15/22 06/15/22 06/15/22 Range/Units 05:54 05:54 05:54 WBC (4.8-10.8) K/ul RBC (4.63-6.08) M/uL Hgb (14.0-18.0) g/dl Hct (40.1-51.0) % MCV (80.0-100.0) fL MCH (25.0-34.0) pg MCHC (32.0-36.0) g/dL RDW Std Deviation (36.4-46.3) fL RDW Coeff of Olivia (11.5-14.5) % Plt Count (130-400) K/uL MPV (9.4-12.4) fL Immature Gran % (Auto) % Neut % (Auto) % Lymph % (Auto) % [place] % (Auto) % Eos % (Auto) % Baso % (Auto) % Neut # (Auto) (1.4-6.5) K/uL Lymph # (Auto) (1.2-3.4) K/uL [place] # (Auto) (0.24-0.82) K/uL Eos # (Auto) (0-0.50) K/uL Baso # (Auto) (0-0.2) K/uL Immature Gran # (Auto) (0.00-0.02) K/uL Toxic Vacuolation Platelet Estimate (Normal) Macrocytosis Target Cells PT 15.6 H (9.0-12.0) Seconds INR 1.5 H (0.9-1.1) Sodium 131 L (136-145) mmol/L Potassium 4.0 (3.5-5.1) mmol/L Chloride 104 (98-107) mmol/L Carbon Dioxide 21 (21-32) mmol/L Anion Gap 6 (3-11) BUN 14 (6-23) mg/dl Creatinine 0.74 D (0.6-1.4) mg/dl Est Cr Clr Drug Dosing 148.0 ml/min Est GFR ( Amer) 137.5 ml/min Est GFR (Non-Af Amer) 118.7 ml/min BUN/Creatinine Ratio 18.9 (10-20) Glucose 144 H (70-99(Fasting)) mg/dl Calcium 8.4 L (8.5-10.1) mg/dl Phosphorus 3.5 (2.5-4.9) mg/dl Magnesium 1.5 L (1.7-2.4) mg/dl Total Bilirubin 8.6 H (0.2-1.0) mg/dl Direct Bilirubin 4.6 H (0-0.2) mg/dl AST 76 H (13-39) U/L ALT 23 (7-52) U/L Alkaline Phosphatase 111 H (34-104) U/L Ammonia 71.0 (18-72) umol/L Troponin I High Sens (0-20) pg/ml Total Protein 7.6 (6.0-8.3) gm/dl Albumin 2.8 L (3.4-5.0) gm/dl Globulin 4.8 H (2.5-4.0) gm/dl Albumin/Globulin Ratio 0.6 L (0.9-2) TSH (0.300-4.500) uIu/ml Urine Color Urine Appearance (Clear) Urine pH (4.5-7.5) Ur Specific [place] (1.000-1.030) Urine Protein (Negative) Urine Glucose (UA) (Negative) Urine Ketones (Negative) Urine Blood (Negative) Urine Nitrite (Negative) Urine Bilirubin (Negative) Urine Urobilinogen (Negative) Ur Leukocyte Esterase (Negative) Urine WBC (Auto) (0-5) /hpf Urine RBC (Auto) (0-4) /hpf U Hyaline Cast (Auto) (0-5) /lpf U Epithel Cells (Auto) (0-5) /lpf Urine Bacteria (Auto) (Negative) Hepatitis A IgM Ab Hep Bs Antigen Hep Bs Ag Confirmation Hep B Core IgM Ab Hepatitis C Ab (EIA) Hep C Ab Signal/Cutoff SARS-CoV-2, RNA, NAAT (NEGATIVE) 06/15/22 06/14/22 06/14/22 Range/Units 05:54 17:43 15:56 WBC 4.27 L (4.8-10.8) K/ul RBC 3.16 L (4.63-6.08) M/uL Hgb 12.0 L (14.0-18.0) g/dl Hct 32.7 L (40.1-51.0) % MCV 103.5 H (80.0-100.0) fL MCH 38.0 H (25.0-34.0) pg MCHC 36.7 H (32.0-36.0) g/dL RDW Std Deviation 57.8 H (36.4-46.3) fL RDW Coeff of Olivia 15.0 H (11.5-14.5) % Plt Count 75 L (130-400) K/uL MPV 11.6 (9.4-12.4) fL Immature Gran % (Auto) % Neut % (Auto) % Lymph % (Auto) % [place] % (Auto) % Eos % (Auto) % Baso % (Auto) % Neut # (Auto) (1.4-6.5) K/uL Lymph # (Auto) (1.2-3.4) K/uL [place] # (Auto) (0.24-0.82) K/uL Eos # (Auto) (0-0.50) K/uL Baso # (Auto) (0-0.2) K/uL Immature Gran # (Auto) (0.00-0.02) K/uL Toxic Vacuolation Platelet Estimate (Normal) Macrocytosis Target Cells PT (9.0-12.0) Seconds INR (0.9-1.1) Sodium (136-145) mmol/L Potassium (3.5-5.1) mmol/L Chloride (98-107) mmol/L Carbon Dioxide (21-32) mmol/L Anion Gap (3-11) BUN (6-23) mg/dl Creatinine (0.6-1.4) mg/dl Est Cr Clr Drug Dosing ml/min Est GFR ( Amer) ml/min Est GFR (Non-Af Amer) ml/min BUN/Creatinine Ratio (10-20) Glucose (70-99(Fasting)) mg/dl Calcium (8.5-10.1) mg/dl Phosphorus (2.5-4.9) mg/dl Magnesium (1.7-2.4) mg/dl Total Bilirubin (0.2-1.0) mg/dl Direct Bilirubin (0-0.2) mg/dl AST (13-39) U/L ALT (7-52) U/L Alkaline Phosphatase (34-104) U/L Ammonia (18-72) umol/L Troponin I High Sens (0-20) pg/ml Total Protein (6.0-8.3) gm/dl Albumin (3.4-5.0) gm/dl Globulin (2.5-4.0) gm/dl Albumin/Globulin Ratio (0.9-2) TSH (0.300-4.500) uIu/ml Urine Color Dark Yellow Urine Appearance Clear (Clear) Urine pH 6.5 (4.5-7.5) Ur Specific [place] 1.013 (1.000-1.030) Urine Protein Trace H (Negative) Urine Glucose (UA) Negative (Negative) Urine Ketones Negative (Negative) Urine Blood Negative (Negative) Urine Nitrite Positive A (Negative) Urine Bilirubin 3+ H (Negative) Urine Urobilinogen Positive H (Negative) Ur Leukocyte Esterase Trace H (Negative) Urine WBC (Auto) 1-5 (0-5) /hpf Urine RBC (Auto) 0-4 (0-4) /hpf U Hyaline Cast (Auto) 1-5 (0-5) /lpf U Epithel Cells (Auto) 10-20 H (0-5) /lpf Urine Bacteria (Auto) Negative (Negative) Hepatitis A IgM Ab Hep Bs Antigen Hep Bs Ag Confirmation Hep B Core IgM Ab Hepatitis C Ab (EIA) Hep C Ab Signal/Cutoff SARS-CoV-2, RNA, NAAT NEGATIVE (NEGATIVE) 06/14/22 06/14/22 06/14/22 Range/Units 12:37 12:37 11:15 WBC (4.8-10.8) K/ul RBC (4.63-6.08) M/uL Hgb (14.0-18.0) g/dl Hct (40.1-51.0) % MCV (80.0-100.0) fL MCH (25.0-34.0) pg MCHC (32.0-36.0) g/dL RDW Std Deviation (36.4-46.3) fL RDW Coeff of Olivia (11.5-14.5) % Plt Count (130-400) K/uL MPV (9.4-12.4) fL Immature Gran % (Auto) % Neut % (Auto) % Lymph % (Auto) % [place] % (Auto) % Eos % (Auto) % Baso % (Auto) % Neut # (Auto) (1.4-6.5) K/uL Lymph # (Auto) (1.2-3.4) K/uL [place] # (Auto) (0.24-0.82) K/uL Eos # (Auto) (0-0.50) K/uL Baso # (Auto) (0-0.2) K/uL Immature Gran # (Auto) (0.00-0.02) K/uL Toxic Vacuolation Platelet Estimate (Normal) Macrocytosis Target Cells PT 19.3 H (9.0-12.0) Seconds INR 1.9 H (0.9-1.1) Sodium (136-145) mmol/L Potassium (3.5-5.1) mmol/L Chloride (98-107) mmol/L Carbon Dioxide (21-32) mmol/L Anion Gap (3-11) BUN (6-23) mg/dl Creatinine (0.6-1.4) mg/dl Est Cr Clr Drug Dosing ml/min Est GFR ( Amer) ml/min Est GFR (Non-Af Amer) ml/min BUN/Creatinine Ratio (10-20) Glucose (70-99(Fasting)) mg/dl Calcium (8.5-10.1) mg/dl Phosphorus 2.8 (2.5-4.9) mg/dl Magnesium 1.4 L (1.7-2.4) mg/dl Total Bilirubin (0.2-1.0) mg/dl Direct Bilirubin (0-0.2) mg/dl AST (13-39) U/L ALT (7-52) U/L Alkaline Phosphatase (34-104) U/L Ammonia (18-72) umol/L Troponin I High Sens (0-20) pg/ml Total Protein (6.0-8.3) gm/dl Albumin (3.4-5.0) gm/dl Globulin (2.5-4.0) gm/dl Albumin/Globulin Ratio (0.9-2) TSH (0.300-4.500) uIu/ml Urine Color Urine Appearance (Clear) Urine pH (4.5-7.5) Ur Specific [place] (1.000-1.030) Urine Protein (Negative) Urine Glucose (UA) (Negative) Urine Ketones (Negative) Urine Blood (Negative) Urine Nitrite (Negative) Urine Bilirubin (Negative) Urine Urobilinogen (Negative) Ur Leukocyte Esterase (Negative) Urine WBC (Auto) (0-5) /hpf Urine RBC (Auto) (0-4) /hpf U Hyaline Cast (Auto) (0-5) /lpf U Epithel Cells (Auto) (0-5) /lpf Urine Bacteria (Auto) (Negative) Hepatitis A IgM Ab Pending Hep Bs Antigen Pending Hep Bs Ag Confirmation Pending Hep B Core IgM Ab Pending Hepatitis C Ab (EIA) Pending Hep C Ab Signal/Cutoff Pending SARS-CoV-2, RNA, NAAT (NEGATIVE) 06/14/22 06/14/22 06/14/22 Range/Units 11:15 11:15 11:15 WBC (4.8-10.8) K/ul RBC (4.63-6.08) M/uL Hgb (14.0-18.0) g/dl Hct (40.1-51.0) % MCV (80.0-100.0) fL MCH (25.0-34.0) pg MCHC (32.0-36.0) g/dL RDW Std Deviation (36.4-46.3) fL RDW Coeff of Olivia (11.5-14.5) % Plt Count (130-400) K/uL MPV (9.4-12.4) fL Immature Gran % (Auto) % Neut % (Auto) % Lymph % (Auto) % [place] % (Auto) % Eos % (Auto) % Baso % (Auto) % Neut # (Auto) (1.4-6.5) K/uL Lymph # (Auto) (1.2-3.4) K/uL [place] # (Auto) (0.24-0.82) K/uL Eos # (Auto) (0-0.50) K/uL Baso # (Auto) (0-0.2) K/uL Immature Gran # (Auto) (0.00-0.02) K/uL Toxic Vacuolation Platelet Estimate (Normal) Macrocytosis Target Cells PT (9.0-12.0) Seconds INR (0.9-1.1) Sodium 131 L (136-145) mmol/L Potassium 3.5 (3.5-5.1) mmol/L Chloride 99 (98-107) mmol/L Carbon Dioxide 26 (21-32) mmol/L Anion Gap 6 (3-11) BUN 14 (6-23) mg/dl Creatinine 1.15 (0.6-1.4) mg/dl Est Cr Clr Drug Dosing 95.8 ml/min Est GFR ( Amer) 94.4 ml/min Est GFR (Non-Af Amer) 81.4 ml/min BUN/Creatinine Ratio 12.2 (10-20) Glucose 151 H (70-99(Fasting)) mg/dl Calcium 8.2 L (8.5-10.1) mg/dl Phosphorus (2.5-4.9) mg/dl Magnesium (1.7-2.4) mg/dl Total Bilirubin 9.0 H (0.2-1.0) mg/dl Direct Bilirubin (0-0.2) mg/dl AST 88 H (13-39) U/L ALT 24 (7-52) U/L Alkaline Phosphatase 124 H (34-104) U/L Ammonia 44.0 (18-72) umol/L Troponin I High Sens 9.2 (0-20) pg/ml Total Protein 7.8 (6.0-8.3) gm/dl Albumin 2.9 L (3.4-5.0) gm/dl Globulin 4.9 H (2.5-4.0) gm/dl Albumin/Globulin Ratio 0.6 L (0.9-2) TSH 4.545 H (0.300-4.500) uIu/ml Urine Color Urine Appearance (Clear) Urine pH (4.5-7.5) Ur Specific [place] (1.000-1.030) Urine Protein (Negative) Urine Glucose (UA) (Negative) Urine Ketones (Negative) Urine Blood (Negative) Urine Nitrite (Negative) Urine Bilirubin (Negative) Urine Urobilinogen (Negative) Ur Leukocyte Esterase (Negative) Urine WBC (Auto) (0-5) /hpf Urine RBC (Auto) (0-4) /hpf U Hyaline Cast (Auto) (0-5) /lpf U Epithel Cells (Auto) (0-5) /lpf Urine Bacteria (Auto) (Negative) Hepatitis A IgM Ab Hep Bs Antigen Hep Bs Ag Confirmation Hep B Core IgM Ab Hepatitis C Ab (EIA) Hep C Ab Signal/Cutoff SARS-CoV-2, RNA, NAAT (NEGATIVE) 06/14/22 Range/Units 11:15 WBC 6.07 (4.8-10.8) K/ul RBC 3.25 L (4.63-6.08) M/uL Hgb 12.5 L (14.0-18.0) g/dl Hct 34.6 L (40.1-51.0) % MCV 106.5 H (80.0-100.0) fL MCH 38.5 H (25.0-34.0) pg MCHC 36.1 H (32.0-36.0) g/dL RDW Std Deviation 62.3 H (36.4-46.3) fL RDW Coeff of Olivia 15.8 H (11.5-14.5) % Plt Count 74 L (130-400) K/uL MPV 11.8 (9.4-12.4) fL Immature Gran % (Auto) 0.3 % Neut % (Auto) 68.3 % Lymph % (Auto) 18.1 % [place] % (Auto) 10.5 % Eos % (Auto) 1.6 % Baso % (Auto) 1.2 % Neut # (Auto) 4.14 (1.4-6.5) K/uL Lymph # (Auto) 1.10 L (1.2-3.4) K/uL [place] # (Auto) 0.64 (0.24-0.82) K/uL Eos # (Auto) 0.10 (0-0.50) K/uL Baso # (Auto) 0.07 (0-0.2) K/uL Immature Gran # (Auto) 0.02 (0.00-0.02) K/uL Toxic Vacuolation 1+ Platelet Estimate Decreased L (Normal) Macrocytosis Present Target Cells 1+ PT (9.0-12.0) Seconds INR (0.9-1.1) Sodium (136-145) mmol/L Potassium (3.5-5.1) mmol/L Chloride (98-107) mmol/L Carbon Dioxide (21-32) mmol/L Anion Gap (3-11) BUN (6-23) mg/dl Creatinine (0.6-1.4) mg/dl Est Cr Clr Drug Dosing ml/min Est GFR ( Amer) ml/min Est GFR (Non-Af Amer) ml/min BUN/Creatinine Ratio (10-20) Glucose (70-99(Fasting)) mg/dl Calcium (8.5-10.1) mg/dl Phosphorus (2.5-4.9) mg/dl Magnesium (1.7-2.4) mg/dl Total Bilirubin (0.2-1.0) mg/dl Direct Bilirubin (0-0.2) mg/dl AST (13-39) U/L ALT (7-52) U/L Alkaline Phosphatase (34-104) U/L Ammonia (18-72) umol/L Troponin I High Sens (0-20) pg/ml Total Protein (6.0-8.3) gm/dl Albumin (3.4-5.0) gm/dl Globulin (2.5-4.0) gm/dl Albumin/Globulin Ratio (0.9-2) TSH (0.300-4.500) uIu/ml Urine Color Urine Appearance (Clear) Urine pH (4.5-7.5) Ur Specific [place] (1.000-1.030) Urine Protein (Negative) Urine Glucose (UA) (Negative) Urine Ketones (Negative) Urine Blood (Negative) Urine Nitrite (Negative) Urine Bilirubin (Negative) Urine Urobilinogen (Negative) Ur Leukocyte Esterase (Negative) Urine WBC (Auto) (0-5) /hpf Urine RBC (Auto) (0-4) /hpf U Hyaline Cast (Auto) (0-5) /lpf U Epithel Cells (Auto) (0-5) /lpf Urine Bacteria (Auto) (Negative) Hepatitis A IgM Ab Hep Bs Antigen Hep Bs Ag Confirmation Hep B Core IgM Ab Hepatitis C Ab (EIA) Hep C Ab Signal/Cutoff SARS-CoV-2, RNA, NAAT (NEGATIVE) Medications Administered Current Inpatient Medications Clonidine HCl (Clonidine Hcl 0.1 Mg Tab) 0.1 mg PO TID PRN PRN Reason: Hypertension Stop: 07/14/22 23:00 Thiamine HCl 100 mg/ Syringe 10 mls @ 2 mls/min IV QAM [facility] Stop: 07/14/22 23:00 Last Admin: 06/15/22 00:02 Dose: 2 mls/min Folic Acid 1 mg/ Syringe 10 mls @ 5 mls/min IV QAM [facility] Stop: 07/14/22 23:00 Last Admin: 06/15/22 00:02 Dose: 5 mls/min Ceftriaxone Sodium 2,000 mg/ (Dextrose) 70 mls @ 140 mls/hr IV Q24H [facility] Stop: 06/17/22 00:00 Last Infusion: 06/15/22 00:44 Dose: Infused Metronidazole (Flagyl) 500 mg in 100 mls @ 100 mls/hr IV Q8H [facility]; Protocol Stop: 06/25/22 07:59 Cefepime HCl 2,000 mg/ Syringe 20 mls @ 5 mls/min IV Q8H [facility]; Protocol Stop: 06/25/22 07:59 Magnesium Sulfate/Dextrose (Magnesium Sulfate / D5w) 1 gm in 100 mls @ 50 mls/hr IV TODAY@0745 [facility] Stop: 06/15/22 09:44 Lactulose (Lactulose Syrup 20 Gm/30 Ml Udc) 20 gm PO TID [facility] Stop: 07/14/22 23:00 Last Admin: 06/15/22 00:02 Dose: 20 gm Lorazepam (Lorazepam 1 Mg Tab) 1 mg PO ONE PRN; Protocol PRN Reason: EtoH Withdrawal AWSS 6,7,8,9,1 Magnesium Oxide (Magnesium Oxide 400 Mg Tab) 400 mg PO QAM [facility] Stop: 07/15/22 08:59 Multivitamins (Multivitamin Tab) 1 tab PO QAM [facility] Stop: 07/15/22 08:59 Ondansetron HCl (Ondansetron Inj 2 Mg/Ml 2 Ml Vial) 4 mg IV Q6H PRN PRN Reason: Nausea Stop: 07/14/22 23:00 Prednisolone Sodium Phosphate (Prednisolone Sod Phosphate 15 Mg/5 Ml) 40 mg PO DAILY [facility] Stop: 07/15/22 08:59 (1) Alcoholic hepatitis Ascites presence: unspecified Qualified Code(s): K70.10 - Alcoholic hepatitis without ascites
--- NOTE | 2022-06-15 08:31 | Surgery Consultation ---
Date of Consultation June 15, 2022 Assessment & Plan (1) Sigmoid diverticulitis: (2) Biliary sludge: Patient has been admitted on the hospitalist service. Recommend proceeding as follows: At the present time it does not appear that the patient is suffering from acute cholecystitis or biliary colic. Also in addition his appear as though he is having any abdominal complaints concerning sigmoid diverticulitis. Maintain n.p.o. status Continue antibiotics in the form of Rocephin and cefepime Provide IV fluid for hydration Measures have been implemented for potential alcohol withdrawal including thiamine and folic acid along with magnesium which should continue Is unclear if the patient's elevated LFTs are related to biliary pathology or merely related to his heavy alcohol use Gastroenterology consultation has been requested and we will follow for the results of this prior to entertaining any surgical intervention Supervising Physician Co-Signing Physician Notes Patient seen and examined, labs and imaging reviewed, agree with above. 37-year-old male with significant alcohol abuse history transferred from rehab due to abnormal labs. He denies any belly pain. He had a CT scan which showed a distended gallbladder with no evidence of cholecystitis, cirrhotic liver, and some mild diverticulitis with associated 1 cm phlegmon. On exam he is afebrile with stable vitals. He is jaundiced. His abdomen is soft, nontender, nondistended. Labs reviewed, WBC normal, LFTs mildly elevated with a mixed hyperbilirubinemia. I personally reviewed and interpreted the CT scan myself and agree with the assessment of a cirrhotic morphology to the liver with a distended gallbladder with no evidence of cholecystitis. There is some mild inflammation around the sigmoid colon with diverticula which likely represents a mild diverticulitis of the patient is relatively asymptomatic. The area of concern appears to be more of a phlegmon than anything. Recommend IV antibiotics for treatment of the diverticulitis with advancement of diet as tolerated to low fiber. Outpatient colonoscopy in the future. Regarding his gallbladder there is not appear to be any evidence of cholecystitis. His hyperbilirubinemia is a mixed picture and is likely related to his cirrhotic liver and alcoholic hepatopathy. Recommend GI consult for this. Any further concerns should warrant ultrasound, and MRCP or HIDA scan. Surgery will follow peripherally, call with questions or concerns. History of Present Illness Reason for Consultation: Diverticulitis with possible abscess and possible acute cholecystitis Attending Physician: Enzo Baum MD History of Present Illness This is a 37-year-old male with a history of alcoholism. Patient reports he was drinking anywhere between 15 and 30 beers in addition to hard liquor daily. He has been drinking heavily since age of 17. Reportedly his last alcoholic beverage was on 06/08/2022. The patient was most recently at [facility] for alcohol rehab when he was sent to the emergency department secondary to abnormal laboratories. At the time of my interview the patient denies any abdominal pain. He denies any nausea or vomiting. He denies any fevers, shakes, or chills. Should be noted that the patient denies any history of prior colonoscopies and he denies any prior history of previous abdominal surgeries. He notes that he has never had diverticulitis in the past. Since arrival to the hospital the patient has had labs and imaging which independent reviewed. Chest x-ray showed no evidence of pneumonia. Patient did have a liver ultrasound that showed findings concerning for hepatic steatosis versus hepatocellular disease. He was noted to have biliary sludge with no cholelithiasis and no evidence of acute cholecystitis. The gallbladder was noted to be mildly distended with some biliary sludge. A CT scan of the abdomen and pelvis did show the patient had some mild sigmoid diverticulosis with some findings concerning for acute diverticulitis. There is also a 1.8 cm pocket of fluid near the sigmoid colon concerning for a potential abscess. The liver appeared cirrhotic on the study. The gallbladder appeared distended with evidence of sludge and possible stones but no evidence of acute cholecystitis. No intraperitoneal free air or abdominal ascites was noted. Labs include a CBC her white blood cell count was 4.2. Hemoglobin and hematocrit are 12.0 and 32.7. Platelet count was 75,000. His INR is noted to be 1.5. (It was 1.9 at time of admission). Chemistry profile today showed a sodium of 131 with a potassium in the normal range. His BUN and creatinine were both normal. The patient's total bilirubin was 8.6 and his direct bilirubin was 4.7. His AST was elevated at 76 with a normal ALT. Alkaline phosphatase was elevated at 111. Hepatitis profile has been ordered and is pending. A COVID test is negative. At the time of my interview he was resting comfortably in bed he was in no distress. Allergies Allergy/AdvReac Type Severity Reaction Status Date / Time No Known Allergies Allergy Unverified 06/14/22 13:37 Home Medications Medication Instructions Recorded Confirmed Type clonidine HCl 0.1 mg tablet 0.1 mg PO TID PRN Anxiety 06/14/22 06/14/22 History folic acid 1 mg tablet 1 mg PO DAILY 06/14/22 06/14/22 History food supplemt, lactose-reduced 1 ea PO BID 06/14/22 06/14/22 History (Ensure oral liquid) hydroxyzine pamoate 50 mg capsule 50 mg PO TID PRN LOS 06/14/22 06/14/22 History (Vistaril) lactulose 20 gram/30 mL oral 20 g PO TID 06/14/22 06/14/22 History solution multivitamin 1 tab PO DAILY 06/14/22 06/14/22 History thiamine HCl (vitamin B1) 100 mg 100 mg PO DAILY 06/14/22 06/14/22 History tablet Patient History Medical History Alcoholism Tobacco use Surgical History Hx of tonsillectomy Family History Other Cancer Diabetes Hypertension Social History Smoking Status: Current every day smoker Tobacco Type: Cigarettes Cigarettes Per Day: 1 pack or less; Hx Alcohol Use: Yes Alcohol type: beer and hard liquor Hx Substance Use: No Beliefs That Will Affect Care: None Current Living Situation: Spouse and Family Feels Safe at Home: Yes Safety Concerns: Feels Safe At This Time Assistive Devices: None Review of Systems Constitutional: no fever and no chills Eyes: no eye pain Ear, Nose, Mouth, Throat: no ear pain Respiratory: no cough and no dyspnea Cardiovascular: no chest pain Gastrointestinal: no abdominal pain, no nausea and no vomiting Genitourinary: no dysuria Musculoskeletal: no back pain Integumentary: no rash Neurologic: no localized weakness Physical Exam Constitutional: well developed and well nourished; no acute distress Eyes: Scleral jaundice noted ENMT: Ears: no hearing impairment and no external ear abnormality Neck: trachea midline Respiratory: normal respiratory effort; no respiratory distress and no labored breathing Cardiovascular: Rate/Rhythm: regular rate and regular rhythm Gastrointestinal (Abdomen): Abdomen is soft, nonrigid, nondistended. There is no tenderness to palpation in any region of the abdomen. There is no rebound tenderness or guarding Musculoskeletal: No calf tenderness Skin: no rashes Neurologic: moves all extremities Results & Data ([facility]) Vital Signs (Past 12 Hours) Vital Signs Temp Pulse Pulse Resp BP BP Pulse Ox 06/15/22 07:00 36.5 C 84 18 117/72 97 06/15/22 02:40 36.5 C 72 16 133/86 97 06/15/22 02:14 72 06/14/22 22:45 36.5 C 83 16 128/90 98 06/14/22 22:31 134/81 06/14/22 22:31 77 14 06/14/22 22:30 65 17 96 06/14/22 22:00 69 15 97 06/14/22 22:00 129/80 06/14/22 21:30 65 15 95 06/14/22 21:30 137/86 06/14/22 21:00 69 12 97 06/14/22 21:00 129/82 06/14/22 20:30 73 18 96 06/14/22 20:30 110/67 O2 Del Method 06/15/22 07:00 Room Air 06/15/22 02:40 Room Air 06/15/22 02:14 06/14/22 22:45 Room Air 06/14/22 22:31 06/14/22 22:31 06/14/22 22:30 06/14/22 22:00 06/14/22 22:00 06/14/22 21:30 06/14/22 21:30 06/14/22 21:00 06/14/22 21:00 06/14/22 20:30 06/14/22 20:30 PG Care Time/CCT Total # of Minutes Spent Total Time Spent with Patient: Total time spent is greater than 50% in coordination of care (as documented) at patient's floor/unit and/or counseling patient: Coding Level of Care Code 80414 Inpt Consult Level 5 Diagnoses Sigmoid diverticulitis K57.32 Biliary sludge K83.8
[2022-06-15] MEDS ORDERED: prednisoLONE sod phosphate 15 MG/5 ML PO SCH (09:00)
[2022-06-15] MEDS: CEFEPIME 2,000 MG in SYRINGE 0 ML IV SCH ×3 (09:36→23:08)
[2022-06-15] MEDS: metroNIDAZOLE 500 MG/100 ML BAG IV SCH ×2 (09:36→17:02)
[2022-06-15] MEDS: MAGNESIUM OXIDE 400 MG TAB PO SCH (09:36)
[2022-06-15] MEDS: MULTIVITAMIN TAB PO SCH (09:36)
--- NOTE | 2022-06-15 11:08 | Gastrointestinal Consultation ---
Date of Consultation June 15, 2022 Assessment & Plan (1) Cirrhosis: Currently no evidence of Alcoholic Hepatitis. Findings suggest likely early cirrhosis. His MDF is <32 so no steroids needed anyway. Has possible UTI and diverticulitis which could have decompensated his cirrhosis. No GI bleeding. Recommend: Continue ABx. Colonoscopy as OP in 6 weeks. EGD at the same time to evaluate for esophageal varices. Obtain MRCP now to r/o biliary etiology though less likely. Continue Lactulose. Clear liquids for now. Alcohol cessation. Follow up with Hepatology clinic as OP. (2) Sigmoid diverticulitis: History of Present Illness Reason for Consultation: Abnormal LFTs Attending Physician: Enzo Baum MD History of Present Illness 37 years old male patient with chronic alcohol use, sent from rehab for dizziness and jaundice with rising Bilirubin. His ammonia level was 80. Last drink around 2 weeks ago. He denies any abdominal pain, nausea or vomiting, no diarrhea or constipation. No melena or rectal bleeding. Labs showed macrocytosis, thrombocytopenia, INR of 1.5 and T.bili of 8, his MDF is 26. AST>ALT. Possible UTI. CT scan showed no ascites, sigmoid diverticulosis with findings suggestive of acute sigmoid diverticulitis. ? small abscess. Liver cirrhosis. GB sludge/stone. CBD normal size. Allergies Allergy/AdvReac Type Severity Reaction Status Date / Time No Known Allergies Allergy Unverified 06/14/22 13:37 Home Medications Medication Instructions Recorded Confirmed Type clonidine HCl 0.1 mg tablet 0.1 mg PO TID PRN Anxiety 06/14/22 06/14/22 History folic acid 1 mg tablet 1 mg PO DAILY 06/14/22 06/14/22 History food supplemt, lactose-reduced 1 ea PO BID 06/14/22 06/14/22 History (Ensure oral liquid) hydroxyzine pamoate 50 mg capsule 50 mg PO TID PRN LOS 06/14/22 06/14/22 History (Vistaril) lactulose 20 gram/30 mL oral 20 g PO TID 06/14/22 06/14/22 History solution multivitamin 1 tab PO DAILY 06/14/22 06/14/22 History thiamine HCl (vitamin B1) 100 mg 100 mg PO DAILY 06/14/22 06/14/22 History tablet Patient History Medical History Alcoholism Tobacco use Surgical History Hx of tonsillectomy Family History Other Cancer Diabetes Hypertension Social History Smoking Status: Current every day smoker Tobacco Type: Cigarettes Cigarettes Per Day: 1 pack or less; Hx Alcohol Use: Yes Alcohol type: beer and hard liquor Hx Substance Use: No Beliefs That Will Affect Care: None Current Living Situation: Spouse and Family Feels Safe at Home: Yes Safety Concerns: Feels Safe At This Time Assistive Devices: None Review of Systems Review of Systems: All systems reviewed & are unremarkable except as noted in HPI & below Physical Exam Constitutional: comfortable; no acute distress Respiratory: normal respiratory effort, lungs clear to auscultation Cardiovascular: RRR, no murmur, no edema Gastrointestinal (Abdomen): normal bowel sounds, soft, nontender, no hepatosplenomegaly Results & Data ([facility]) Vital Signs (Past 12 Hours) Vital Signs Temp Pulse Pulse Resp BP Pulse Ox O2 Del Method 06/15/22 07:00 36.5 C 84 18 117/72 97 Room Air 06/15/22 02:40 36.5 C 72 16 133/86 97 Room Air 06/15/22 02:14 72 Laboratory Results Laboratory Results - last 24 hr 06/14/22 06/14/22 06/14/22 11:15 11:15 11:15 WBC 6.07 RBC 3.25 L Hgb 12.5 L Hct 34.6 L MCV 106.5 H MCH 38.5 H MCHC 36.1 H RDW Std Deviation 62.3 H RDW Coeff of Olivia 15.8 H Plt Count 74 L MPV 11.8 Immature Gran % (Auto) 0.3 Neut % (Auto) 68.3 Lymph % (Auto) 18.1 [place] % (Auto) 10.5 Eos % (Auto) 1.6 Baso % (Auto) 1.2 Neut # (Auto) 4.14 Lymph # (Auto) 1.10 L [place] # (Auto) 0.64 Eos # (Auto) 0.10 Baso # (Auto) 0.07 Immature Gran # (Auto) 0.02 Toxic Vacuolation 1+ Platelet Estimate Decreased L Macrocytosis Present Target Cells 1+ PT INR Sodium 131 L Potassium 3.5 Chloride 99 Carbon Dioxide 26 Anion Gap 6 BUN 14 Creatinine 1.15 Est Cr Clr Drug Dosing 95.8 Est GFR ( Amer) 94.4 Est GFR (Non-Af Amer) 81.4 BUN/Creatinine Ratio 12.2 Glucose 151 H Calcium 8.2 L Phosphorus Magnesium Total Bilirubin 9.0 H Direct Bilirubin AST 88 H ALT 24 Alkaline Phosphatase 124 H Ammonia 44.0 Troponin I High Sens 9.2 Total Protein 7.8 Albumin 2.9 L Globulin 4.9 H Albumin/Globulin Ratio 0.6 L TSH Urine Color Urine Appearance Urine pH Ur Specific [place] Urine Protein Urine Glucose (UA) Urine Ketones Urine Blood Urine Nitrite Urine Bilirubin Urine Urobilinogen Ur Leukocyte Esterase Urine WBC (Auto) Urine RBC (Auto) U Hyaline Cast (Auto) U Epithel Cells (Auto) Urine Bacteria (Auto) Hepatitis A IgM Ab Hep Bs Antigen Hep Bs Ag Confirmation Hep B Core IgM Ab Hepatitis C Ab (EIA) Hep C Ab Signal/Cutoff SARS-CoV-2, RNA, NAAT 06/14/22 06/14/22 06/14/22 11:15 11:15 12:37 WBC RBC Hgb Hct MCV MCH MCHC RDW Std Deviation RDW Coeff of Olivia Plt Count MPV Immature Gran % (Auto) Neut % (Auto) Lymph % (Auto) [place] % (Auto) Eos % (Auto) Baso % (Auto) Neut # (Auto) Lymph # (Auto) [place] # (Auto) Eos # (Auto) Baso # (Auto) Immature Gran # (Auto) Toxic Vacuolation Platelet Estimate Macrocytosis Target Cells PT 19.3 H INR 1.9 H Sodium Potassium Chloride Carbon Dioxide Anion Gap BUN Creatinine Est Cr Clr Drug Dosing Est GFR ( Amer) Est GFR (Non-Af Amer) BUN/Creatinine Ratio Glucose Calcium Phosphorus 2.8 Magnesium 1.4 L Total Bilirubin Direct Bilirubin AST ALT Alkaline Phosphatase Ammonia Troponin I High Sens Total Protein Albumin Globulin Albumin/Globulin Ratio TSH 4.545 H Urine Color Urine Appearance Urine pH Ur Specific [place] Urine Protein Urine Glucose (UA) Urine Ketones Urine Blood Urine Nitrite Urine Bilirubin Urine Urobilinogen Ur Leukocyte Esterase Urine WBC (Auto) Urine RBC (Auto) U Hyaline Cast (Auto) U Epithel Cells (Auto) Urine Bacteria (Auto) Hepatitis A IgM Ab Hep Bs Antigen Hep Bs Ag Confirmation Hep B Core IgM Ab Hepatitis C Ab (EIA) Hep C Ab Signal/Cutoff SARS-CoV-2, RNA, NAAT 06/14/22 06/14/22 06/14/22 12:37 15:56 17:43 WBC RBC Hgb Hct MCV MCH MCHC RDW Std Deviation RDW Coeff of Olivia Plt Count MPV Immature Gran % (Auto) Neut % (Auto) Lymph % (Auto) [place] % (Auto) Eos % (Auto) Baso % (Auto) Neut # (Auto) Lymph # (Auto) [place] # (Auto) Eos # (Auto) Baso # (Auto) Immature Gran # (Auto) Toxic Vacuolation Platelet Estimate Macrocytosis Target Cells PT INR Sodium Potassium Chloride Carbon Dioxide Anion Gap BUN Creatinine Est Cr Clr Drug Dosing Est GFR ( Amer) Est GFR (Non-Af Amer) BUN/Creatinine Ratio Glucose Calcium Phosphorus Magnesium Total Bilirubin Direct Bilirubin AST ALT Alkaline Phosphatase Ammonia Troponin I High Sens Total Protein Albumin Globulin Albumin/Globulin Ratio TSH Urine Color Dark Yellow Urine Appearance Clear Urine pH 6.5 Ur Specific [place] 1.013 Urine Protein Trace H Urine Glucose (UA) Negative Urine Ketones Negative Urine Blood Negative Urine Nitrite Positive A Urine Bilirubin 3+ H Urine Urobilinogen Positive H Ur Leukocyte Esterase Trace H Urine WBC (Auto) 1-5 Urine RBC (Auto) 0-4 U Hyaline Cast (Auto) 1-5 U Epithel Cells (Auto) 10-20 H Urine Bacteria (Auto) Negative Hepatitis A IgM Ab Pending Hep Bs Antigen Pending Hep Bs Ag Confirmation Pending Hep B Core IgM Ab Pending Hepatitis C Ab (EIA) Pending Hep C Ab Signal/Cutoff Pending SARS-CoV-2, RNA, NAAT NEGATIVE 06/15/22 06/15/22 06/15/22 05:54 05:54 05:54 WBC 4.27 L RBC 3.16 L Hgb 12.0 L Hct 32.7 L MCV 103.5 H MCH 38.0 H MCHC 36.7 H RDW Std Deviation 57.8 H RDW Coeff of Olivia 15.0 H Plt Count 75 L MPV 11.6 Immature Gran % (Auto) Neut % (Auto) Lymph % (Auto) [place] % (Auto) Eos % (Auto) Baso % (Auto) Neut # (Auto) Lymph # (Auto) [place] # (Auto) Eos # (Auto) Baso # (Auto) Immature Gran # (Auto) Toxic Vacuolation Platelet Estimate Macrocytosis Target Cells PT 15.6 H INR 1.5 H Sodium 131 L Potassium 4.0 Chloride 104 Carbon Dioxide 21 Anion Gap 6 BUN 14 Creatinine 0.74 D Est Cr Clr Drug Dosing 148.0 Est GFR ( Amer) 137.5 Est GFR (Non-Af Amer) 118.7 BUN/Creatinine Ratio 18.9 Glucose 144 H Calcium 8.4 L Phosphorus 3.5 Magnesium 1.5 L Total Bilirubin 8.6 H Direct Bilirubin 4.6 H AST 76 H ALT 23 Alkaline Phosphatase 111 H Ammonia Troponin I High Sens Total Protein 7.6 Albumin 2.8 L Globulin 4.8 H Albumin/Globulin Ratio 0.6 L TSH Urine Color Urine Appearance Urine pH Ur Specific [place] Urine Protein Urine Glucose (UA) Urine Ketones Urine Blood Urine Nitrite Urine Bilirubin Urine Urobilinogen Ur Leukocyte Esterase Urine WBC (Auto) Urine RBC (Auto) U Hyaline Cast (Auto) U Epithel Cells (Auto) Urine Bacteria (Auto) Hepatitis A IgM Ab Hep Bs Antigen Hep Bs Ag Confirmation Hep B Core IgM Ab Hepatitis C Ab (EIA) Hep C Ab Signal/Cutoff SARS-CoV-2, RNA, NAAT 06/15/22 05:54 WBC RBC Hgb Hct MCV MCH MCHC RDW Std Deviation RDW Coeff of Olivia Plt Count MPV Immature Gran % (Auto) Neut % (Auto) Lymph % (Auto) [place] % (Auto) Eos % (Auto) Baso % (Auto) Neut # (Auto) Lymph # (Auto) [place] # (Auto) Eos # (Auto) Baso # (Auto) Immature Gran # (Auto) Toxic Vacuolation Platelet Estimate Macrocytosis Target Cells PT INR Sodium Potassium Chloride Carbon Dioxide Anion Gap BUN Creatinine Est Cr Clr Drug Dosing Est GFR ( Amer) Est GFR (Non-Af Amer) BUN/Creatinine Ratio Glucose Calcium Phosphorus Magnesium Total Bilirubin Direct Bilirubin AST ALT Alkaline Phosphatase Ammonia 71.0 Troponin I High Sens Total Protein Albumin Globulin Albumin/Globulin Ratio TSH Urine Color Urine Appearance Urine pH Ur Specific [place] Urine Protein Urine Glucose (UA) Urine Ketones Urine Blood Urine Nitrite Urine Bilirubin Urine Urobilinogen Ur Leukocyte Esterase Urine WBC (Auto) Urine RBC (Auto) U Hyaline Cast (Auto) U Epithel Cells (Auto) Urine Bacteria (Auto) Hepatitis A IgM Ab Hep Bs Antigen Hep Bs Ag Confirmation Hep B Core IgM Ab Hepatitis C Ab (EIA) Hep C Ab Signal/Cutoff SARS-CoV-2, RNA, NAAT
[2022-06-15 12:06] LABS: HBSAG NON-REACTIVE (NON-REACTIVE); Hepatitis A Antibody IgM NON-REACTIVE (NON-REACTIVE); Hepatitis B Core Antibody IgM NON-REACTIVE (NON-REACTIVE)
--- NOTE | 2022-06-15 13:30 | Magnetic Resonance Report ---
MRCP CLINICAL HISTORY: Elevated liver function tests. TECHNIQUE: Utilizing a 1.5 Claribel magnet and dedicated coil, multiplanar, multiecho imaging of the [facility] abdomen was performed utilizing heavily T2 weighted pulsing sequences without IV contrast. COMPARISON STUDY: Right upper quadrant ultrasound and CT of the abdomen and pelvis June 14, 2022. FINDINGS: There is no intra or extrahepatic biliary ductal dilatation. No common bile duct calculi ar e identified. There is no pancreatic ductal dilatation. Pancreas divisum is noted. No peripancreatic fluid is present. There is slight nodularity of the liver surface. A 1.1 cm T2 hyperintense hepatic l esion on axial image 11:30 favors a cyst. No additional liver lesions are identified on unenhanced ex am. Gallbladder is distended. There is layering material suggestive of sludge within the gallbladder. No gallstones are identified. There is no convincing evidence for acute cholecystitis. The spleen is mildly enlarged. Numerous small hypointense foci within the spleen may reflect Gam[place]-Cindy bodies. S plenorenal shunt is again noted. Adrenal glands and kidneys are unremarkable. There is no hydronephro sis. The caliber of visualized small and large bowel are normal. IMPRESSION: 1. No biliary ductal dilatation. No common bile duct calculi. 2. Suspected cirrhosis. Evidence for portal hypertension including splenomegaly and a splenorenal pablo nt. 3. Distended gallbladder containing sludge. However, no convincing evidence for acute cholecystitis. 4. Pancreas divisum. No pancreatic ductal dilatation. No peripancreatic fluid. ACT 112: Negative or not required by law. Electronically signed by: Kenn Mckinney M.D. 06/15/2022 1:27 PM
[2022-06-16 07:22] LABS: Hematocrit (blood only) 31.4 % (40.1-51.0); Hemoglobin 11.5 g/dl (14.0-18.0); Mean Corpuscular Hemoglobin 38.5 pg (25.0-34.0); Mean Corpuscular Hgb Conc 36.6 g/dL (32.0-36.0); Mean Platelet Volume 11.3 fL (9.4-12.4); Platelet Count 82 K/uL (130-400); RDW Coefficient of Variation 15.2 % (11.5-14.5); RDW Standard Deviation 58.8 fL (36.4-46.3); Red Blood Count 2.99 M/uL (4.63-6.08)
[2022-06-16 07:26] LABS: INR 1.6 (0.9-1.1); Prothrombin Time 16.4 Seconds (9.0-12.0)
[2022-06-16 07:29] LABS: Albumin Globulin Ratio 0.6 (0.9-2); Albumin Level 2.6 gm/dl (3.4-5.0); BUN Creatinine Ratio 17.8 (10-20); Bilirubin Direct 3.5 mg/dl (0-0.2); Bilirubin,Total 7.1 mg/dl (0.2-1.0); Calcium 8.1 mg/dl (8.5-10.1); Creatinine Clr Calc Pharmacy 150.3 ml/min; Est GFR (African American) 138.3 ml/min; Est GFR (Non-African American) 119.3 ml/min; Globulin 4.4 gm/dl (2.5-4.0); Magnesium 1.4 mg/dl (1.7-2.4); Phosphorus 4.7 mg/dl (2.5-4.9); Potassium 3.7 mmol/L (3.5-5.1)
[2022-06-16] MEDS ORDERED: POTASSIUM CHLORIDE CRTAB 20 MEQ TABCR PO STA (08:01)
--- NOTE | 2022-06-16 08:01 | Hospitalist Progress Note ---
Date of Service June 16, 2022 Assessment & Plan (1) Alcoholic hepatitis: (2) Cirrhosis: (3) Elevated INR: (4) Hyponatremia: (5) Alcoholism: Plan: Patient is 37 y/o M with H alcoholism, tobacco use presented to ER from [facility] for abnormal labs. In rehab since 06/08/22. Last ETOH drink 06/08/[address] abdomen pelvis previously noted cirrhosis, portal hypertension In ER afebrile, vitals stable. No leukocytosis, H/H: 12.5/34, Plt: 74, PT:19, INR: 1.9, Na: 131, T bili: 9.0, AST: 88, ALT: 24, Alk Phos: 124, Albumin: 2.9 Liver US: 1. Heterogeneous morphology of the liver with mildly increased echogenicity. These findings may represent hepatic steatosis versus hepatocellular disease. 2. Patent portal vein demonstrates hepatofugal flow. 3. Biliary sludge. No cholelithiasis or sonographic evidence of acute cholecystitis. In ER given banana bag, phytonadione 5mg IV Prednisolone 40mg x1 given Meld score - 26 on admission Maddrey: 42 on admission Hepatitis panel - negative Blood cultures pending Boost Nutrition consult Multivitamin, thiamine, folic acid daily Lactulose 3 times daily- continue CT abdomen pelvis 1. There is mild sigmoid diverticulosis with findings suggestive of acute sigmoid diverticulitis. Nonemergent follow-up with colonoscopy is recommended for further evaluation of the underlying colon. 2. No intraperitoneal free air is seen. 3. There is a 1.8 cm pocket of complex fluid or nodularity adjacent to the sigmoid colon. A small abscess is not excluded. This is not well evaluated without IV contrast. 4. The liver is cirrhotic in morphology with evidence of steatosis. 5. Splenomegaly, perisplenic varices, and a splenorenal shunt indicate portal hypertension. 6. Markedly distended gallbladder with evidence of stones/sludge. There is no definitive CT evidence of acute cholecystitis. Clinical and laboratory correlation will be required. 7. Marked and age-advanced coronary artery calcification. Consider nonemergent cardiology follow-up. GI and surgery consulted -Patient with diverticulitis, not likely abscess, also not likely cholecystitis - recommend to continue with IV antibiotics - obtain MRCP MRCP 1. No biliary ductal dilatation. No common bile duct calculi. 2. Suspected cirrhosis. Evidence for portal hypertension including splenomegaly and a splenorenal shunt. 3. Distended gallbladder containing sludge. However, no convincing evidence for acute cholecystitis. 4. Pancreas divisum. No pancreatic ductal dilatation. No peripancreatic fluid. Monitor CBC, CMP, liver labs, ammonia, PT/INR 06/15 -overall patient reports to feel better. MELD score - 23, Madrey score 25 (on admission 26 and 42 respectively) 06/16 - pt feels better. Able to ambulate in room per RN. MELD score 22, Maddrey score 27 Alcohol abuse disorder Alcohol cessation advised Patient has finished Valium taper at rehab. Last drink 6 days ago (prior to admission) Patient reports he had last drink last Friday, 8 days ago from today Family is present in the hospital, they are here from [place] They hope patient can return back to [facility] Family is concerned that patient's insight about his condition is poor We will also consult with psychiatry to help with alcohol abuse disorder, appr eciate their input (6) Tobacco use: Plan: Smokes 1ppd Smoking cessation encouraged Denies nicotine patch DVT Prophylaxis SCDs Full Code as per discussion with pt Follows with Dr Stalin Koo in [place] for routine care Admission and Anticipated Discharge Date Admission Date: June 14, 2022 Subjective Patient seen in follow-up of decompensated cirrhosis/alcoholic hepatitis, diverticular disease Patient denies any abdominal pain, also denies any fevers chills chest pain shortness of breath. Denies nausea or vomiting. Would like to have his diet advanced. Discussed with the family present at the bedside. Family is from [place]. Will also have psychiatry consult. [facility] Review of Systems Review of Systems: All systems reviewed & are unremarkable except as noted in Subjective Physical Exam Physical Exam: General: + chronically ill appearing, obese M, jaundiced Head: normocephalic, atraumatic Eyes: PERRL, EOM's intact, conjunctiva non-injected, +icteric ENT: normal inspection external ears, nose, mucous membranes moist Neck: supple Lungs: clear, no respiratory distress, no wheezing/rhonchi/rales CV: RRR, no murmur, no pretibial edema Abd: +distended, normal BS, soft, non-tender Ext: +brown discoloration bilateral lower extremities Neuro: Alert and oriented to person, time, no focal deficits noted, normal affect, moves extremities Skin: warm, dry Results & Data Results & Data ([facility]) Vital Signs (Past 12 Hours) Vital Signs Temp Pulse Pulse Resp BP Pulse Ox O2 Del Method 06/16/22 02:46 36.8 C 92 H 18 122/74 99 Room Air 06/16/22 00:42 96 H 06/15/22 22:49 36.9 C 98 H 18 124/67 97 Room Air Laboratory Results 06/16/22 06/16/22 06/16/22 Range/Units 06:52 06:52 06:52 WBC (4.8-10.8) K/ul RBC (4.63-6.08) M/uL Hgb (14.0-18.0) g/dl Hct (40.1-51.0) % MCV (80.0-100.0) fL MCH (25.0-34.0) pg MCHC (32.0-36.0) g/dL RDW Std Deviation (36.4-46.3) fL RDW Coeff of Olivia (11.5-14.5) % Plt Count (130-400) K/uL MPV (9.4-12.4) fL PT 16.4 H (9.0-12.0) Seconds INR 1.6 H (0.9-1.1) Sodium 132 L (136-145) mmol/L Potassium 3.7 (3.5-5.1) mmol/L Chloride 105 (98-107) mmol/L Carbon Dioxide 19 L (21-32) mmol/L Anion Gap 8 (3-11) BUN 13 (6-23) mg/dl Creatinine 0.73 (0.6-1.4) mg/dl Est Cr Clr Drug Dosing 150.3 ml/min Est GFR ( Amer) 138.3 ml/min Est GFR (Non-Af Amer) 119.3 ml/min BUN/Creatinine Ratio 17.8 (10-20) Glucose 88 (70-99(Fasting)) mg/dl Calcium 8.1 L (8.5-10.1) mg/dl Phosphorus 4.7 D (2.5-4.9) mg/dl Magnesium 1.4 L (1.7-2.4) mg/dl Total Bilirubin 7.1 H (0.2-1.0) mg/dl Direct Bilirubin 3.5 H (0-0.2) mg/dl AST 76 H (13-39) U/L ALT 28 (7-52) U/L Alkaline Phosphatase 108 H (34-104) U/L Ammonia 45.0 (18-72) umol/L Total Protein 7.0 (6.0-8.3) gm/dl Albumin 2.6 L (3.4-5.0) gm/dl Globulin 4.4 H (2.5-4.0) gm/dl Albumin/Globulin Ratio 0.6 L (0.9-2) Hepatitis A IgM Ab (NON-REACTIVE) Hep Bs Antigen (NON-REACTIVE) Hep Bs Ag Confirmation Hep B Core IgM Ab (NON-REACTIVE) Hepatitis C Ab (EIA) (NON-REACTIVE) Hep C Ab Signal/Cutoff (<1.00) 06/16/22 06/14/22 Range/Units 06:52 12:37 WBC 5.40 (4.8-10.8) K/ul RBC 2.99 L (4.63-6.08) M/uL Hgb 11.5 L (14.0-18.0) g/dl Hct 31.4 L (40.1-51.0) % MCV 105.0 H (80.0-100.0) fL MCH 38.5 H (25.0-34.0) pg MCHC 36.6 H (32.0-36.0) g/dL RDW Std Deviation 58.8 H (36.4-46.3) fL RDW Coeff of Olivia 15.2 H (11.5-14.5) % Plt Count 82 L (130-400) K/uL MPV 11.3 (9.4-12.4) fL PT (9.0-12.0) Seconds INR (0.9-1.1) Sodium (136-145) mmol/L Potassium (3.5-5.1) mmol/L Chloride (98-107) mmol/L Carbon Dioxide (21-32) mmol/L Anion Gap (3-11) BUN (6-23) mg/dl Creatinine (0.6-1.4) mg/dl Est Cr Clr Drug Dosing ml/min Est GFR ( Amer) ml/min Est GFR (Non-Af Amer) ml/min BUN/Creatinine Ratio (10-20) Glucose (70-99(Fasting)) mg/dl Calcium (8.5-10.1) mg/dl Phosphorus (2.5-4.9) mg/dl Magnesium (1.7-2.4) mg/dl Total Bilirubin (0.2-1.0) mg/dl Direct Bilirubin (0-0.2) mg/dl AST (13-39) U/L ALT (7-52) U/L Alkaline Phosphatase (34-104) U/L Ammonia (18-72) umol/L Total Protein (6.0-8.3) gm/dl Albumin (3.4-5.0) gm/dl Globulin (2.5-4.0) gm/dl Albumin/Globulin Ratio (0.9-2) Hepatitis A IgM Ab NON-REACTIVE (NON-REACTIVE) Hep Bs Antigen NON-REACTIVE (NON-REACTIVE) Hep Bs Ag Confirmation TNP Hep B Core IgM Ab NON-REACTIVE (NON-REACTIVE) Hepatitis C Ab (EIA) NON-REACTIVE (NON-REACTIVE) Hep C Ab Signal/Cutoff 0.11 (<1.00) Medications Administered Current Inpatient Medications Clonidine HCl (Clonidine Hcl 0.1 Mg Tab) 0.1 mg PO TID PRN PRN Reason: Hypertension Stop: 07/14/22 23:00 Thiamine HCl 100 mg/ Syringe 10 mls @ 2 mls/min IV QAM [facility] Stop: 07/14/22 23:00 Last Admin: 06/16/22 08:48 Dose: 2 mls/min Folic Acid 1 mg/ Syringe 10 mls @ 5 mls/min IV QAM [facility] Stop: 07/14/22 23:00 Last Admin: 06/16/22 08:48 Dose: 5 mls/min Metronidazole (Flagyl) 500 mg in 100 mls @ 100 mls/hr IV Q8H [facility]; Protocol Stop: 06/25/22 07:59 Last Infusion: 06/16/22 10:38 Dose: Infused Cefepime HCl 2,000 mg/ Syringe 20 mls @ 5 mls/min IV Q8H [facility]; Protocol Stop: 06/25/22 07:59 Last Admin: 06/16/22 08:51 Dose: 5 mls/min Lactulose (Lactulose Syrup 20 Gm/30 Ml Udc) 20 gm PO TID [facility] Stop: 07/14/22 23:00 Last Admin: 06/16/22 13:39 Dose: 20 gm Lorazepam (Lorazepam 1 Mg Tab) 1 mg PO ONE PRN; Protocol PRN Reason: EtoH Withdrawal AWSS 6,7,8,9,1 Magnesium Oxide (Magnesium Oxide 400 Mg Tab) 400 mg PO QAM [facility] Stop: 07/15/22 08:59 Last Admin: 06/16/22 08:48 Dose: 400 mg Multivitamins (Multivitamin Tab) 1 tab PO QAM [facility] Stop: 07/15/22 08:59 Last Admin: 06/16/22 08:48 Dose: 1 tab Ondansetron HCl (Ondansetron Inj 2 Mg/Ml 2 Ml Vial) 4 mg IV Q6H PRN PRN Reason: Nausea Stop: 07/14/22 23:00 (1) Alcoholic hepatitis Ascites presence: unspecified Qualified Code(s): K70.10 - Alcoholic hepatitis without ascites
[2022-06-16] MEDS ORDERED: PHYTONADIONE PED 1 MG, ORA-SWEET SYRUP 2.25 ML, ORA-PLUS SUSP VEHICLE 2.25 ML, BARCODE ... PO ONE (08:15)
[2022-06-16] MEDS: MAGNESIUM SULFATE / D5W 1 GM/100 ML BAG IV SCH ×2 (08:48→12:03)
[2022-06-16] MEDS: MULTIVITAMIN TAB PO SCH (08:48)
[2022-06-16] MEDS: MAGNESIUM OXIDE 400 MG TAB PO SCH (08:48)
[2022-06-16] MEDS: THIAMINE HCL 100 MG in SYRINGE 9 ML IV SCH (08:48)
[2022-06-16] MEDS: FOLIC ACID 1 MG in SYRINGE 9.8 ML IV SCH (08:48)
[2022-06-16] MEDS: LACTULOSE SYRUP 20 GM/30 ML UDC PO SCH ×3 (08:48→20:32)
[2022-06-16] MEDS: metroNIDAZOLE 500 MG/100 ML BAG IV SCH ×3 (08:48→16:21)
[2022-06-16] MEDS: CEFEPIME 2,000 MG in SYRINGE 0 ML IV SCH ×2 (08:51→16:21)
--- NOTE | 2022-06-16 16:34 | Psychiatric Consultation ---
Date of Consultation June 16, 2022 Impression / Recommendations Impression This is a 37 yo with a history of alcohol use admitted medically. Diagnostically consistent with alcohol use disorder, he denies any other psychiatric symptoms such as anxiety or depression but does note that he struggles at times with sleep and can worry and likes that alcohol helps with this. They do not meet criteria for inpatient psychiatric treatment at this time rather recommendation is for dual diagnosis or residential substance use treatment. Provided motivational interviewing. They are not interested in residential treatment at this time but are agreeable to outpatient services to help with substance use and willing to consider medication assisted treatment with their primary care provider. [place] mental health laws do not allow for inpatient or residential substance use over objection for alcohol use disorder and no concerns for SI, HI, roni, psychosis nor inability to attend to self- care needs. (1) Alcohol use disorder, severe, dependence: Plan -He is not local to this area so declined resources on local mental health services and substance use services stating he is aware of some services near [facility], CM may be able to assist further in identifying any additional resources near him -Patient is not an imminent danger to self or others and does not meet criteria for involuntary psychiatric commitment -Continue AWSS as well as thiamine and folic acid (though should be outside withdrawal period given residential tx prior to admission) -Highly encourage consideration for medication assisted treatment options: defer safety of naltrexone to hospitalist/GI providers given cirrhosis/hepatitis; alternative would be starting acamprosate 333mg po TID if Cr/renal ok (this is unavailable on hospital formulary but could be started in outpt setting) -Alternative would be gabapentin 300mg po TID prn for off-label use for alcohol use/anxiety/insomnia; reviewed with him risks of fatal respiratory suppression if combined with alcohol if this was started in the future Psych History Identifying Data 37 yo man with alcohol use disorder admitted medically for alcohol induced cirrhosis, biliary changes and diverticulitis after concerning labwork while at [facility] substance use treatment [place]. Psychiatry consulted for recommendations regarding alcohol use. Chief Complaint "I'd rather do outpatient stuff, I don't want to be away from home anymore". History of Present Illness Shahzad identifies a long history of alcohol use with recent use of 15-30 beers per day. He checked himself into [facility] residential treatment center to help with withdrawal and treating his alcohol use and had been there for 8-9 days before requiring transfer to [facility] due to labwork changes. He liked it at [facility] but does not wish to return for further residential treatment there nor anywhere else. Prefers to engage in outpatient treatment near his home in [facility]. He isn't sure what this might look like but states he knows of some resources there that were shared with him. He had one prior experience with substance use treatment via supervised withdrawal when he was younger. Longest period of sobriety was 4 months. Doesn't like AA, tried this in the past. Has never tried medication assisted treatment. Denies any past or current psychiatric symptoms, treatment, nor medication tri als with exception of ativan that worked "but only for a week and then it stopped, I needed a higher dose I think". Likes the taste of alcohol and "how it makes me feel". Denies that it helps manage anxiety or depression, just that it helps him feel good. Family shared concern with hospitalist team that he is not wanting to return to get further residential substance use tx once medically stable. Allergies Allergy/AdvReac Type Severity Reaction Status Date / Time No Known Allergies Allergy Unverified 06/14/22 13:37 Home Medications Medication Instructions Recorded Confirmed Type clonidine HCl 0.1 mg tablet 0.1 mg PO TID PRN Anxiety 06/14/22 06/14/22 History folic acid 1 mg tablet 1 mg PO DAILY 06/14/22 06/14/22 History food supplemt, lactose-reduced 1 ea PO BID 06/14/22 06/14/22 History (Ensure oral liquid) hydroxyzine pamoate 50 mg capsule 50 mg PO TID PRN LOS 06/14/22 06/14/22 History (Vistaril) lactulose 20 gram/30 mL oral 20 g PO TID 06/14/22 06/14/22 History solution multivitamin 1 tab PO DAILY 06/14/22 06/14/22 History thiamine HCl (vitamin B1) 100 mg 100 mg PO DAILY 06/14/22 06/14/22 History tablet Personal History Employment Status: Self-Employed Marital Status: Living w/ Signif. Other Number Of Children: one child, age 20 Beliefs That Will Affect Care: None Patient History Medical History Alcoholism Tobacco use Surgical History Hx of tonsillectomy Family History Other Cancer Diabetes Hypertension Social History Smoking Status: Current every day smoker Tobacco Type: Cigarettes Cigarettes Per Day: 1 pack or less; Hx Alcohol Use: Yes Alcohol type: beer and hard liquor Hx Substance Use: No Beliefs That Will Affect Care: None Current Living Situation: Spouse and Family Feels Safe at Home: Yes Safety Concerns: Feels Safe At This Time Assistive Devices: None Physical Exam Psychiatric: Orientation: alert and oriented x 3 Apperance: appropriately dressed and appropriately groomed Eye Contact: good eye contact Motor Behavior: no abnormal motor movements Speech: normal rate/rhythm/volume of speech Affect: euthymic affect Mood: no depressed mood and no anxious mood Thought Process: linear/logical thought process Thought Content: reality based without delusions Suicidal Thoughts: denies suicidal thoughts Homicidal Thoughts: denies homicidal thoughts Hallucinations: no auditory hallucinations and no visual hallucinations Cognition: recent memory grossly intact, remote memory grossly intact, attention grossly intact and language grossly intact Estimated Intelligence: consistent with education level In sight: + limited insight Judgement: + limited judgement Vital Signs (Past 24 Hours): Last Vital Signs Temp 36.9 C 06/16/22 11:00 Pulse 86 06/16/22 11:00 Resp 16 06/16/22 11:00 BP 132/61 06/16/22 11:00 Pulse Ox 99 06/16/22 11:00 O2 Del Method 06/16/22 11:00 O2 Flow Rate 97 06/14/22 11:56 Review of Systems All systems reviewed & are unremarkable except as noted in HPI & below Results & Data ([facility]) Laboratory Results elevated AST Medications Administered Thiamine HCl 100 mg/ Syringe 10 mls @ 2 mls/min IV QAM [facility] Stop: 07/14/22 23:00 Last Admin: 06/16/22 08:48 Dose: 2 mls/min Documented By: Admin: 06/15/22 09:00 Dose: 2 mls/min Documented By: Admin: 06/15/22 00:02 Dose: 2 mls/min Documented By: EL Folic Acid 1 mg/ Syringe 10 mls @ 5 mls/min IV QAM [facility] Stop: 07/14/22 23:00 Last Admin: 06/16/22 08:48 Dose: 5 mls/min Documented By: Admin: 06/15/22 09:01 Dose: 5 mls/min Documented By: Admin: 06/15/22 00:02 Dose: 5 mls/min Documented By: YUMIKO Metronidazole (Flagyl) 500 mg in 100 mls @ 100 mls/hr IV Q8H [facility]; Protocol Stop: 06/25/22 07:59 Last Admin: 06/16/22 16:21 Dose: 100 mls/hr Documented By: Infusion: 06/16/22 10:38 Dose: 0 mls/hr Documented By: Admin: 06/16/22 08:48 Dose: 100 mls/hr Documented By: Infusion: 06/16/22 01:05 Dose: 0 mls/hr Documented By: Admin: 06/16/22 00:00 Dose: 100 mls/hr Documented By: Infusion: 06/15/22 18:15 Dose: 0 mls/hr Documented By: Admin: 06/15/22 17:02 Dose: 100 mls/hr Documented By: Infusion: 06/15/22 11:40 Dose: 0 mls/hr Documented By: Admin: 06/15/22 09:36 Dose: 100 mls/hr Documented By: DTT Cefepime HCl 2,000 mg/ Syringe 20 mls @ 5 mls/min IV Q8H [facility]; Protocol Stop: 06/25/22 07:59 Last Admin: 06/16/22 16:21 Dose: 5 mls/min Documented By: Admin: 06/16/22 08:51 Dose: 5 mls/min Documented By: Admin: 06/15/22 23:08 Dose: 5 mls/min Documented By: Admin: 06/15/22 17:02 Dose: 5 mls/min Documented By: Admin: 06/15/22 09:36 Dose: 5 mls/min Documented By: DTT Lactulose (Lactulose Syrup 20 Gm/30 Ml Udc) 20 gm PO TID [facility] Stop: 07/14/22 23:00 Last Admin: 06/16/22 13:39 Dose: 20 gm Documented By: Admin: 06/16/22 08:48 Dose: 20 gm Documented By: Admin: 06/15/22 19:53 Dose: 20 gm Documented By: Admin: 06/15/22 15:04 Dose: 20 gm Documented By: Admin: 06/15/22 09:01 Dose: 20 gm Documented By: Admin: 06/15/22 00:02 Dose: 20 gm Documented By: YUMIKO Magnesium Oxide (Magnesium Oxide 400 Mg Tab) [facility]: 07/15/22 08:59 Last Admin: 06/16/22 08:48 Dose: 400 mg Documented By: Admin: 06/15/22 09:36 Dose: 400 mg Documented By: JOSH Multivitamins (Multivitamin Tab) [facility] Stop: 07/15/22 08:59 Last Admin: 06/16/22 08:48 Dose: 1 tab Documented By: Admin: 06/15/22 09:36 Dose: 1 tab Documented By: JOSH Coding Level of Care Code 89339 Inpt Consult Level 3 Diagnoses Alcohol use disorder, severe, dependence F10.20
[2022-06-17] MEDS: CEFEPIME 2,000 MG in SYRINGE 0 ML IV SCH ×3 (00:41→15:31)
[2022-06-17] MEDS: metroNIDAZOLE 500 MG/100 ML BAG IV SCH ×3 (00:44→15:31)
--- NOTE | 2022-06-17 07:40 | Hospitalist Progress Note ---
Date of Service June 17, 2022 Assessment & Plan (1) Alcoholic hepatitis: (2) Cirrhosis: (3) Elevated INR: (4) Hyponatremia: (5) Alcoholism: Plan: Patient is 37 y/o M with H alcoholism, tobacco use presented to ER from [facility] for abnormal labs. In rehab since 06/08/22. Last ETOH drink 06/08/[address] abdomen pelvis previously noted cirrhosis, portal hypertension In ER afebrile, vitals stable. No leukocytosis, H/H: 12.5/34, Plt: 74, PT:19, INR: 1.9, Na: 131, T bili: 9.0, AST: 88, ALT: 24, Alk Phos: 124, Albumin: 2.9 Liver US: 1. Heterogeneous morphology of the liver with mildly increased echogenicity. These findings may represent hepatic steatosis versus hepatocellular disease. 2. Patent portal vein demonstrates hepatofugal flow. 3. Biliary sludge. No cholelithiasis or sonographic evidence of acute cholecystitis. In ER given banana bag, phytonadione 5mg IV Prednisolone 40mg x1 given Meld score - 26 on admission Maddrey: 42 on admission Hepatitis panel - negative Blood cultures pending Lactulose 3 times daily- continue Boost Nutrition consult Multivitamin, thiamine, folic acid daily CT abdomen pelvis 1. There is mild sigmoid diverticulosis with findings suggestive of acute sigmoid diverticulitis. Nonemergent follow-up with colonoscopy is recommended for further evaluation of the underlying colon. 2. No intraperitoneal free air is seen. 3. There is a 1.8 cm pocket of complex fluid or nodularity adjacent to the sigmoid colon. A small abscess is not excluded. This is not well evaluated without IV contrast. 4. The liver is cirrhotic in morphology with evidence of steatosis. 5. Splenomegaly, perisplenic varices, and a splenorenal shunt indicate portal hypertension. 6. Markedly distended gallbladder with evidence of stones/sludge. There is no definitive CT evidence of acute cholecystitis. Clinical and laboratory correlation will be required. 7. Marked and age-advanced coronary artery calcification. Consider nonemergent cardiology follow-up. GI and surgery consulted -Patient with diverticulitis, not likely abscess, also not likely cholecystitis - recommend to continue with IV antibiotics - obtain MRCP MRCP 1. No biliary ductal dilatation. No common bile duct calculi. 2. Suspected cirrhosis. Evidence for portal hypertension including splenomegaly and a splenorenal shunt. 3. Distended gallbladder containing sludge. However, no convincing evidence for acute cholecystitis. 4. Pancreas divisum. No pancreatic ductal dilatation. No peripancreatic fluid. Monitor CBC, CMP, liver labs, ammonia, PT/INR 06/15 -overall patient reports to feel better. MELD score - 23, Madrey score 25 (on admission 26 and 42 respectively) 06/16 - pt feels better. Able to ambulate in room per RN. MELD score 22, Maddrey score 27 06/17 - pt continues to feel well. MELD 25, Maddrey 33 (PT, INR slightly up from yesterday, bili slightly down) Alcohol abuse disorder Alcohol cessation advised Patient has finished Valium taper at rehab. Last drink 6 days ago (prior to admission) Patient reports he had last drink last Friday, 8 days ago from today Family is present in the hospital, they are here from [place], [place] They hope patient can return back to [facility] Family is concerned that patient's insight about his condition is poor Psychiatry also consulted to help with alcohol abuse disorder, appreciate their input (6) Tobacco use: Plan: Smokes 1ppd Smoking cessation encouraged Denies nicotine patch DVT Prophylaxis SCDs Full Code as per discussion with pt Follows with Dr Stalin Koo in [place] for routine care Admission and Anticipated Discharge Date Admission Date: June 14, 2022 Subjective Patient seen in follow-up of decompensated cirrhosis/alcoholic hepatitis, diverticular disease Patient denies any abdominal pain, also denies any fevers chills chest pain shortness of breath. Denies nausea or vomiting. Tolerating diet. Discussed with the family present, yesterday. Family is from [place]. Psychiatry consulted. Family would like if [facility], however pt prefers to return back home. Review of Systems Review of Systems: All systems reviewed & are unremarkable except as noted in Subjective Physical Exam Physical Exam: General: + chronically ill appearing, obese M, jaundiced Head: normocephalic, atraumatic Eyes: PERRL, EOM's intact, conjunctiva non-injected, +icteric ENT: normal inspection external ears, nose, mucous membranes moist Neck: supple Lungs: clear, no respiratory distress, no wheezing/rhonchi/rales CV: RRR, no murmur, no pretibial edema Abd: +distended, normal BS, soft, non-tender Ext: +brown discoloration bilateral lower extremities Neuro: Alert and oriented to person, time, no focal deficits noted, normal affect, moves extremities Skin: warm, dry Results & Data Results & Data ([facility]) Vital Signs (Past 12 Hours) Vital Signs Temp Pulse Pulse Resp BP Pulse Ox O2 Del Method 06/17/22 04:16 36.7 C 89 18 127/84 95 Room Air 06/17/22 01:06 99 H 06/17/22 00:50 37.5 C 94 H 18 103/60 97 Room Air Laboratory Results 06/17/22 06/17/22 06/17/22 Range/Units 07:04 07:04 07:04 WBC 5.35 (4.8-10.8) K/ul RBC 3.05 L (4.63-6.08) M/uL Hgb 11.5 L (14.0-18.0) g/dl Hct 32.0 L (40.1-51.0) % MCV 104.9 H (80.0-100.0) fL MCH 37.7 H (25.0-34.0) pg MCHC 35.9 (32.0-36.0) g/dL RDW Std Deviation 56.3 H (36.4-46.3) fL RDW Coeff of Olivia 14.7 H (11.5-14.5) % Plt Count 87 L (130-400) K/uL MPV 11.5 (9.4-12.4) fL PT 17.7 H (9.0-12.0) Seconds INR 1.7 H (0.9-1.1) Sodium 130 L (136-145) mmol/L Potassium 3.6 (3.5-5.1) mmol/L Chloride 103 (98-107) mmol/L Carbon Dioxide 21 (21-32) mmol/L Anion Gap 6 (3-11) BUN 12 (6-23) mg/dl Creatinine 0.83 (0.6-1.4) mg/dl Est Cr Clr Drug Dosing 132.3 ml/min Est GFR ( Amer) 131.2 ml/min Est GFR (Non-Af Amer) 113.2 ml/min BUN/Creatinine Ratio 14.5 (10-20) Glucose 90 (70-99(Fasting)) mg/dl Calcium 8.0 L (8.5-10.1) mg/dl Phosphorus 3.7 D (2.5-4.9) mg/dl Magnesium 1.3 L (1.7-2.4) mg/dl Total Bilirubin 6.9 H (0.2-1.0) mg/dl AST 93 H (13-39) U/L ALT 30 (7-52) U/L Alkaline Phosphatase 95 (34-104) U/L Total Protein 7.0 (6.0-8.3) gm/dl Albumin 2.6 L (3.4-5.0) gm/dl Globulin 4.4 H (2.5-4.0) gm/dl Albumin/Globulin Ratio 0.6 L (0.9-2) Medications Administered Current Inpatient Medications Clonidine HCl (Clonidine Hcl 0.1 Mg Tab) 0.1 mg PO TID PRN PRN Reason: Hypertension Stop: 07/14/22 23:00 Thiamine HCl 100 mg/ Syringe 10 mls @ 2 mls/min IV QAM [facility] Stop: 07/14/22 23:00 Last Admin: 06/16/22 08:48 Dose: 2 mls/min Folic Acid 1 mg/ Syringe 10 mls @ 5 mls/min IV QAM [facility] Stop: 07/14/22 23:00 Last Admin: 06/16/22 08:48 Dose: 5 mls/min Metronidazole (Flagyl) 500 mg in 100 mls @ 100 mls/hr IV Q8H [facility]; Protocol Stop: 06/25/22 07:59 Last Infusion: 06/17/22 01:54 Dose: Infused Cefepime HCl 2,000 mg/ Syringe 20 mls @ 5 mls/min IV Q8H [facility]; Protocol Stop: 06/25/22 07:59 Last Admin: 06/17/22 00:41 Dose: 5 mls/min Lactulose (Lactulose Syrup 20 Gm/30 Ml Udc) 20 gm PO TID [facility] Stop: 07/14/22 23:00 Last Admin: 06/16/22 20:32 Dose: Not Given Lorazepam (Lorazepam 1 Mg Tab) 1 mg PO ONE PRN; Protocol PRN Reason: EtoH Withdrawal AWSS 6,7,8,9,1 Magnesium Oxide (Magnesium Oxide 400 Mg Tab) 400 mg PO QAM [facility] Stop: 07/15/22 08:59 Last Admin: 06/16/22 08:48 Dose: 400 mg Multivitamins (Multivitamin Tab) 1 tab PO QAM [facility] Stop: 07/15/22 08:59 Last Admin: 06/16/22 08:48 Dose: 1 tab Ondansetron HCl (Ondansetron Inj 2 Mg/Ml 2 Ml Vial) 4 mg IV Q6H PRN PRN Reason: Nausea Stop: 07/14/22 23:00 (1) Alcoholic hepatitis Ascites presence: unspecified Qualified Code(s): K70.10 - Alcoholic hepatitis without ascites
[2022-06-17 07:46] LABS: INR 1.7 (0.9-1.1); Prothrombin Time 17.7 Seconds (9.0-12.0)
[2022-06-17 07:47] LABS: Hemoglobin 11.5 g/dl (14.0-18.0); Mean Corpuscular Hemoglobin 37.7 pg (25.0-34.0); Mean Corpuscular Hgb Conc 35.9 g/dL (32.0-36.0); Mean Corpuscular Volume 104.9 fL (80.0-100.0); Mean Platelet Volume 11.5 fL (9.4-12.4); Platelet Count 87 K/uL (130-400); RDW Coefficient of Variation 14.7 % (11.5-14.5); RDW Standard Deviation 56.3 fL (36.4-46.3); Red Blood Count 3.05 M/uL (4.63-6.08); White Blood Count 5.35 K/ul (4.8-10.8)
[2022-06-17 08:02] LABS: Albumin Globulin Ratio 0.6 (0.9-2); Albumin Level 2.6 gm/dl (3.4-5.0); BUN Creatinine Ratio 14.5 (10-20); Bilirubin,Total 6.9 mg/dl (0.2-1.0); Creatinine Clr Calc Pharmacy 132.3 ml/min; Est GFR (African American) 131.2 ml/min; Est GFR (Non-African American) 113.2 ml/min; Globulin 4.4 gm/dl (2.5-4.0); Magnesium 1.3 mg/dl (1.7-2.4); Phosphorus 3.7 mg/dl (2.5-4.9); Potassium 3.6 mmol/L (3.5-5.1)
[2022-06-17] MEDS ORDERED: PHYTONADIONE PED 1 MG, ORA-SWEET SYRUP 2.25 ML, ORA-PLUS SUSP VEHICLE 2.25 ML, BARCODE ... PO ONE (08:12)
[2022-06-17] MEDS ORDERED: PHYTONADIONE PED 1 MG/0.5ML AMP/SYRG IV SCH (09:00)
[2022-06-17] MEDS: MULTIVITAMIN TAB PO SCH (09:19)
[2022-06-17] MEDS: THIAMINE HCL 100 MG in SYRINGE 9 ML IV SCH (09:19)
[2022-06-17] MEDS: LACTULOSE SYRUP 20 GM/30 ML UDC PO SCH ×3 (09:19→20:05)
[2022-06-17] MEDS: FOLIC ACID 1 MG in SYRINGE 9.8 ML IV SCH (09:19)
[2022-06-17] MEDS: MAGNESIUM OXIDE 400 MG TAB PO SCH (09:19)
[2022-06-17] MEDS: PHYTONADIONE 5 MG TAB PO SCH (10:40)
[2022-06-17] MEDS: MAGNESIUM SULFATE / D5W 1 GM/100 ML BAG IV SCH ×2 (10:40→12:55)
[2022-06-18] MEDS: CEFEPIME 2,000 MG in SYRINGE 0 ML IV SCH ×2 (00:42→07:38)
[2022-06-18] MEDS: metroNIDAZOLE 500 MG/100 ML BAG IV SCH ×2 (00:45→07:38)
[2022-06-18 06:47] LABS: Hematocrit (blood only) 32.2 % (40.1-51.0); Hemoglobin 11.9 g/dl (14.0-18.0); Mean Corpuscular Hemoglobin 38.1 pg (25.0-34.0); Mean Corpuscular Volume 103.2 fL (80.0-100.0); Mean Platelet Volume 10.8 fL (9.4-12.4); Platelet Count 94 K/uL (130-400); RDW Standard Deviation 53.5 fL (36.4-46.3); Red Blood Count 3.12 M/uL (4.63-6.08); White Blood Count 5.45 K/ul (4.8-10.8)
[2022-06-18 07:17] LABS: Albumin Globulin Ratio 0.6 (0.9-2); Albumin Level 2.7 gm/dl (3.4-5.0); BUN Creatinine Ratio 13.7 (10-20); Bilirubin,Total 6.9 mg/dl (0.2-1.0); Calcium 8.3 mg/dl (8.5-10.1); Creatinine Clr Calc Pharmacy 149.5 ml/min; Est GFR (African American) 138.3 ml/min; Est GFR (Non-African American) 119.3 ml/min; Globulin 4.6 gm/dl (2.5-4.0); Magnesium 1.4 mg/dl (1.7-2.4); Phosphorus 3.6 mg/dl (2.5-4.9); Potassium 3.5 mmol/L (3.5-5.1); Total Protein 7.3 gm/dl (6.0-8.3)
[2022-06-18 07:33] LABS: INR 1.7 (0.9-1.1); Prothrombin Time 17.2 Seconds (9.0-12.0)
[2022-06-18] MEDS: LACTULOSE SYRUP 20 GM/30 ML UDC PO SCH ×2 (07:39→14:00)
[2022-06-18] MEDS: THIAMINE HCL 100 MG in SYRINGE 9 ML IV SCH (07:39)
[2022-06-18] MEDS: MULTIVITAMIN TAB PO SCH (07:39)
[2022-06-18] MEDS: MAGNESIUM OXIDE 400 MG TAB PO SCH (07:40)
[2022-06-18] MEDS: PHYTONADIONE 5 MG TAB PO SCH (07:40)
[2022-06-18] MEDS: FOLIC ACID 1 MG in SYRINGE 9.8 ML IV SCH (07:47)
[2022-06-18] MEDS ORDERED: POTASSIUM CHLORIDE CRTAB 20 MEQ TABCR PO STA (09:06)
--- NOTE | 2022-06-18 09:13 | Hospitalist Progress Note ---
Date of Service June 18, 2022 Assessment & Plan (1) Alcoholic hepatitis: (2) Cirrhosis: (3) Elevated INR: (4) Hyponatremia: (5) Alcoholism: Plan: Patient is 37 y/o M with PMH alcoholism, tobacco use presented to ER from [facility] for abnormal labs. In rehab since 06/08/22. Last ETOH drink 06/08/[address] abdomen pelvis previously noted cirrhosis, portal hypertension In ER afebrile, vitals stable. No leukocytosis, H/H: 12.5/34, Plt: 74, PT:19, INR: 1.9, Na: 131, T bili: 9.0, AST: 88, ALT: 24, Alk Phos: 124, Albumin: 2.9 Liver US: 1. Heterogeneous morphology of the liver with mildly increased echogenicity. These findings may represent hepatic steatosis versus hepatocellular disease. 2. Patent portal vein demonstrates hepatofugal flow. 3. Biliary sludge. No cholelithiasis or sonographic evidence of acute cholecystitis. In ER given banana bag, phytonadione 5mg IV Prednisolone 40mg x1 given Meld score - 26 on admission Maddrey: 42 on admission Hepatitis panel - negative Blood cultures pending Lactulose 3 times daily- continue Boost Nutrition consult Multivitamin, thiamine, folic acid daily Diverticular disease Patient was seen in the ER in the [place] in May. At that time was treate d with Augmentin. Currently denies any abdominal pain, and he is tolerating diet, however abnormal findings on CT, as below. He has been treated here with IV cefepime and IV Flagyl. Will discharge on p.o. antibiotics. Patient is to follow-up with PCP, and recommend follow-up with gastroenterology/liver specialist Recommend blood work at the next PCP appointment, to evaluate liver enzymes, and to asses his MELD and Madrey score CT abdomen pelvis 1. There is mild sigmoid diverticulosis with findings suggestive of acute sigmoid diverticulitis. Nonemergent follow-up with colonoscopy is recommended for further evaluation of the underlying colon. 2. No intraperitoneal free air is seen. 3. There is a 1.8 cm pocket of complex fluid or nodularity adjacent to the sigmoid colon. A small abscess is not excluded. This is not well evaluated without IV contrast. 4. The liver is cirrhotic in morphology with evidence of steatosis. 5. Splenomegaly, perisplenic varices, and a splenorenal shunt indicate portal hypertension. 6. Markedly distended gallbladder with evidence of stones/sludge. There is no definitive CT evidence of acute cholecystitis. Clinical and laboratory correlation will be required. 7. Marked and age-advanced coronary artery calcification. Consider nonemergent cardiology follow-up. GI and surgery consulted -Patient with diverticulitis, not likely abscess, also not likely cholecystitis - recommend to continue with IV antibiotics - obtain MRCP MRCP 1. No biliary ductal dilatation. No common bile duct calculi. 2. Suspected cirrhosis. Evidence for portal hypertension including splenomegaly and a splenorenal shunt. 3. Distended gallbladder containing sludge. However, no convincing evidence for acute cholecystitis. 4. Pancreas divisum. No pancreatic ductal dilatation. No peripancreatic fluid. Monitor CBC, CMP, liver labs, ammonia, PT/INR 06/15 - overall patient reports to feel better. MELD score - 23, Madrey score 25 (on admission 26 and 42 respectively) 06/16 - pt feels better. Able to ambulate in room per RN. MELD score 22, Maddrey score 27 06/17 - pt continues to feel well. MELD 25, Maddrey 33 (PT, INR slightly up from yesterday, bili slightly down) 06/18 - patient continues to feel well. MELD score 25, Madrey 30 Alcohol abuse disorder Alcohol cessation advised Patient has finished Valium taper at rehab. Last drink 6 days ago (prior to admission) Patient reports he had last drink last Friday, 8 days ago from today Family is present in the hospital, they are here from [place] They hope patient can return back to [facility] rehab Family is concerned that patient's insight about his condition is poor Psychiatry also consulted to help with alcohol abuse disorder, appreciate their input (6) Tobacco use: Plan: Smokes 1ppd Smoking cessation encouraged Denies nicotine patch DVT Prophylaxis SCDs Full Code as per discussion with pt Follows with Dr Stalin Koo in [place] for routine care Admission and Anticipated Discharge Date Admission Date: June 14, 2022 Subjective Patient seen in follow-up of decompensated cirrhosis/alcoholic hepatitis, diverticular disease Patient denies any abdominal pain, also denies any fevers chills chest pain shortness of breath. Denies nausea or vomiting. Tolerating diet. Patient reports walking around without any dizziness or lightheadedness. Psychiatry consulted. Family would like if patient could return back to [facility] rehab, however pt prefers to return back home. Family is here from [place], discussed with them in detail. Plan to discharge patient with them and close follow-up with his physician. Review of Systems Review of Systems: All systems reviewed & are unremarkable except as noted in Subjective Physical Exam Physical Exam: General: + chronically ill appearing, obese M, jaundiced Head: normocephalic, atraumatic Eyes: PERRL, EOM's intact, conjunctiva non-injected, +icteric ENT: normal inspection external ears, nose, mucous membranes moist Neck: supple Lungs: clear, no respiratory distress, no wheezing/rhonchi/rales CV: RRR, no murmur, no pretibial edema Abd: +distended, normal BS, soft, non-tender to palpation Ext: +chronic skin discoloration changes bilateral lower extremities Neuro: Alert and oriented to person, time, no focal deficits noted, normal affect, moves extremities Skin: warm, dry Results & Data Results & Data ([facility]) Vital Signs (Past 12 Hours) Vital Signs Temp Pulse Pulse Resp BP Pulse Ox O2 Del Method 06/18/22 07:22 36.9 C 90 20 125/82 96 Room Air 06/17/22 22:30 89 06/18/22 02:57 37.0 C 102 H 19 134/83 98 Room Air 06/17/22 22:47 37.0 C 95 H 20 124/81 97 Room Air Laboratory Results 06/18/22 06/18/22 06/18/22 Range/Units 06:29 06:29 06:29 WBC (4.8-10.8) K/ul RBC (4.63-6.08) M/uL Hgb (14.0-18.0) g/dl Hct (40.1-51.0) % MCV (80.0-100.0) fL MCH (25.0-34.0) pg MCHC (32.0-36.0) g/dL RDW Std Deviation (36.4-46.3) fL RDW Coeff of Olivia (11.5-14.5) % Plt Count (130-400) K/uL MPV (9.4-12.4) fL PT 17.2 H (9.0-12.0) Seconds INR 1.7 H (0.9-1.1) Sodium 129 L (136-145) mmol/L Potassium 3.5 (3.5-5.1) mmol/L Chloride 103 (98-107) mmol/L Carbon Dioxide 20 L (21-32) mmol/L Anion Gap 6 (3-11) BUN 10 (6-23) mg/dl Creatinine 0.73 (0.6-1.4) mg/dl Est Cr Clr Drug Dosing 149.5 ml/min Est GFR ( Amer) 138.3 ml/min Est GFR (Non-Af Amer) 119.3 ml/min BUN/Creatinine Ratio 13.7 (10-20) Glucose 100 H (70-99(Fasting)) mg/dl Calcium 8.3 L (8.5-10.1) mg/dl Phosphorus 3.6 (2.5-4.9) mg/dl Magnesium 1.4 L (1.7-2.4) mg/dl Total Bilirubin 6.9 H (0.2-1.0) mg/dl AST 90 H (13-39) U/L ALT 31 (7-52) U/L Alkaline Phosphatase 106 H (34-104) U/L Ammonia 49.0 (18-72) umol/L Total Protein 7.3 (6.0-8.3) gm/dl Albumin 2.7 L (3.4-5.0) gm/dl Globulin 4.6 H (2.5-4.0) gm/dl Albumin/Globulin Ratio 0.6 L (0.9-2) 06/18/22 Range/Units 06:29 WBC 5.45 (4.8-10.8) K/ul RBC 3.12 L (4.63-6.08) M/uL Hgb 11.9 L (14.0-18.0) g/dl Hct 32.2 L (40.1-51.0) % MCV 103.2 H (80.0-100.0) fL MCH 38.1 H (25.0-34.0) pg MCHC 37.0 H (32.0-36.0) g/dL RDW Std Deviation 53.5 H (36.4-46.3) fL RDW Coeff of Olivia 14.0 (11.5-14.5) % Plt Count 94 L (130-400) K/uL MPV 10.8 (9.4-12.4) fL PT (9.0-12.0) Seconds INR (0.9-1.1) Sodium (136-145) mmol/L Potassium (3.5-5.1) mmol/L Chloride (98-107) mmol/L Carbon Dioxide (21-32) mmol/L Anion Gap (3-11) BUN (6-23) mg/dl Creatinine (0.6-1.4) mg/dl Est Cr Clr Drug Dosing ml/min Est GFR ( Amer) ml/min Est GFR (Non-Af Amer) ml/min BUN/Creatinine Ratio (10-20) Glucose (70-99(Fasting)) mg/dl Calcium (8.5-10.1) mg/dl Phosphorus (2.5-4.9) mg/dl Magnesium (1.7-2.4) mg/dl Total Bilirubin (0.2-1.0) mg/dl AST (13-39) U/L ALT (7-52) U/L Alkaline Phosphatase (34-104) U/L Ammonia (18-72) umol/L Total Protein (6.0-8.3) gm/dl Albumin (3.4-5.0) gm/dl Globulin (2.5-4.0) gm/dl Albumin/Globulin Ratio (0.9-2) Medications Administered Current Inpatient Medications Clonidine HCl (Clonidine Hcl 0.1 Mg Tab) 0.1 mg PO TID PRN PRN Reason: Hypertension Stop: 07/14/22 23:00 Thiamine HCl 100 mg/ Syringe 10 mls @ 2 mls/min IV QAM [facility] Stop: 07/14/22 23:00 Last Admin: 06/18/22 07:39 Dose: 2 mls/min Folic Acid 1 mg/ Syringe 10 mls @ 5 mls/min IV QAM [facility] Stop: 07/14/22 23:00 Last Admin: 06/18/22 07:47 Dose: 5 mls/min Metronidazole (Flagyl) 500 mg in 100 mls @ 100 mls/hr IV Q8H [facility]; Protocol Stop: 12/20/22 07:59 Last Admin: 06/18/22 07:38 Dose: 100 mls/hr Cefepime HCl 2,000 mg/ Syringe 20 mls @ 5 mls/min IV Q8H [facility]; Protocol Stop: 06/25/22 07:59 Last Admin: 06/18/22 07:38 Dose: 5 mls/min Magnesium Sulfate/Dextrose (Magnesium Sulfate / D5w) 1 gm in 100 mls @ 50 mls/hr IV Q2H [facility] Stop: 06/18/22 13:14 Lactulose (Lactulose Syrup 20 Gm/30 Ml Udc) 20 gm PO TID [facility] Stop: 07/14/22 23:00 Last Admin: 06/18/22 07:39 Dose: Not Given Lorazepam (Lorazepam 1 Mg Tab) 1 mg PO ONE PRN; Protocol PRN Reason: EtoH Withdrawal AWSS 6,7,8,9,1 Magnesium Oxide (Magnesium Oxide 400 Mg Tab) 400 mg PO QAM [facility] Stop: 07/15/22 08:59 Last Admin: 06/18/22 07:40 Dose: 400 mg Multivitamins (Multivitamin Tab) 1 tab PO QAM [facility] Stop: 07/15/22 08:59 Last Admin: 06/18/22 07:39 Dose: 1 tab Ondansetron HCl (Ondansetron Inj 2 Mg/Ml 2 Ml Vial) 4 mg IV Q6H PRN PRN Reason: Nausea Stop: 07/14/22 23:00 Phytonadione (Phytonadione 5 Mg Tab) 10 mg PO DAILY [facility] Stop: 06/19/22 09:01 Last Admin: 06/18/22 07:40 Dose: 10 mg Potassium Chloride (Potassium Chloride Crtab 20 Meq Tabcr) 40 meq PO NOW STA Stop: 06/18/22 09:07 (1) Alcoholic hepatitis Ascites presence: unspecified Qualified Code(s): K70.10 - Alcoholic hepatitis without ascites
[2022-06-18] MEDS: MAGNESIUM SULFATE / D5W 1 GM/100 ML BAG IV SCH ×2 (10:07→11:59)
--- NOTE | 2022-06-18 13:08 | Discharge Summary ---
Date of Service June 18, 2022 Admission HPI Per Admitting Provider Patient is 37 y/o M with PMH alcoholism, tobacco use presented to ER from [facility] for abnormal labs. Patient in [facility] rehab since 06/08/22 for alcohol abuse after family intervention. History obtained from patient, patient's and chart review. Patient was drinking 15-30 beers daily as well as additional hard liquor. Has been drinking since age 17. He reports last ETOH drink was on 06/08/22. Reported patient had been having some confusion at rehab. Just started lactulose yesterday. Had one dose and had 3 BM's. No bowel movement today. Patient denies any abdominal pain. Patient's states in past he has been on lactulose intermittently. reports patient's abdomen appears larger than last week, however patient is unsure. Patient states he slipped out of bed this morning and landed on his knees. Reports has been having some dizziness with walking. Has been feeling weak past several days. Denies hitting head. Denies fever/chills, diaphoresis, nausea, vomiting, ASIF, syncope, vision changes, neck pain, CP, SOB, orthopnea, palpitations, cough, sore throat, choking, otalgia, rhinorrhea, paresthesias, weakness, extremity weakness, increased extremity edema, rashes, urinary symptoms, melena, hematochezia. Outpatient records reviewed on paper ER chart. Was seen in ER in [place] in 05/22/22 and had abdomen ultrasound: gallbladder sludge. top normal wall thickening. CT abd/pelvis: sigmoid diverticulitis, cirrhosis and portal hypertension 05/12/22 had bilirubin of 3. In 06/10/22: outpatient labs bilirubin on 6.9 and 06/13/22 of 7.5 per chart review. In November 2021 Bilirubin WNL. Admission Exam Per Admitting Provider General: +ill appearing, WDWN Head: normocephalic, atraumatic Eyes: PERRL, EOM's intact, conjunctiva non-injected, +icteric ENT: normal inspection external ears, nose, mucous membranes moist Neck: supple, trachea midline Lungs: clear, no respiratory distress, no wheezing/rhonchi/rales CV: RRR, no murmur, no pretibial edema Abd: +distended, normal BS, soft, non-tender Ext: no cyanosis, no calf tenderness, +brown discoloration bilateral lower extremities Neuro: Alert and oriented to person, time and knows in hospital, unsure what hospital, no focal deficits noted, normal affect Skin: warm, dry Principal Diagnosis Alcoholic liver disease, decompensated cirrhosis Possible alcoholic hepatitis Alcohol use disorder Diverticulitis Discharge Exam General: + chronically ill appearing, obese M, jaundiced Head: normocephalic, atraumatic Eyes: PERRL, EOM's intact, conjunctiva non-injected, +icteric ENT: normal inspection external ears, nose, mucous membranes moist Neck: supple Lungs: clear, no respiratory distress, no wheezing/rhonchi/rales CV: RRR, no murmur, no pretibial edema Abd: +distended, normal BS, soft, non-tender to palpation Ext: +chronic skin discoloration changes bilateral lower extremities Neuro: Alert and oriented to person, time, no focal deficits noted, normal affect, moves extremities Skin: warm, dry Discharge Data Allergies Allergy/AdvReac Type Severity Reaction Status Date / Time No Known Allergies Allergy Unverified 06/14/22 13:37 Consultations 06/14/22 16:11 ED Decision to Admit Stat 06/14/22 23:01 Consult Gastroenterology Routine 06/15/22 08:03 Consult General Surgery Routine 06/16/22 10:55 Consult Psychiatry Routine 06/18/22 11:48 Burn CD for patient Stat Ordered Studies 06/14/22 12:16 US liver Stat IMPRESSION: 1. Heterogeneous morphology of the liver with mildly increased echogenicity. These findings may represent hepatic steatosis versus hepatocellular disease. 2. Patent portal vein demonstrates hepatofugal flow. 3. Biliary sludge. No cholelithiasis or sonographic evidence of acute cholecystitis. 06/14/22 17:56 CT abd pelvis wo con Stat IMPRESSION: 1. There is mild sigmoid diverticulosis with findings suggestive of acute sigmoid diverticulitis. Nonemergent follow-up with colonoscopy is recommended for further evaluation of the underlying colon. 2. No intraperitoneal free air is seen. 3. There is a 1.8 cm pocket of complex fluid or nodularity adjacent to the sigmoid colon. A small abscess is not excluded. This is not well evaluated without IV contrast. 4. The liver is cirrhotic in morphology with evidence of steatosis. 5. Splenomegaly, perisplenic varices, and a splenorenal shunt indicate portal hypertension. 6. Markedly distended gallbladder with evidence of stones/sludge. There is no definitive CT evidence of acute cholecystitis. Clinical and laboratory correlation will be required. 7. Marked and age-advanced coronary artery calcification. Consider nonemergent cardiology follow-up. 06/15/22 12:22 MR MRCP Urgent IMPRESSION: 1. No biliary ductal dilatation. No common bile duct calculi. 2. Suspected cirrhosis. Evidence for portal hypertension including splenomegaly and a splenorenal shunt. 3. Distended gallbladder containing sludge. However, no convincing evidence for acute cholecystitis. 4. Pancreas divisum. No pancreatic ductal dilatation. No peripancreatic fluid. Hospital Course (1) Alcoholic hepatitis: (2) Cirrhosis: (3) Elevated INR: (4) Hyponatremia: (5) Alcoholism: Patient is 37 y/o M with H alcoholism, tobacco use presented to ER from [facility] for abnormal labs. In rehab since 06/08/22. Last ETOH drink 06/08/[address] abdomen pelvis previously noted cirrhosis, portal hypertension In ER afebrile, vitals stable. No leukocytosis, H/H: 12.5/34, Plt: 74, PT:19, INR: 1.9, Na: 131, T bili: 9.0, AST: 88, ALT: 24, Alk Phos: 124, Albumin: 2.9 Liver US: 1. Heterogeneous morphology of the liver with mildly increased echogenicity. These findings may represent hepatic steatosis versus hepatocellular disease. 2. Patent portal vein demonstrates hepatofugal flow. 3. Biliary sludge. No cholelithiasis or sonographic evidence of acute cholecystitis. In ER given banana bag, phytonadione 5mg IV Prednisolone 40mg x1 given Meld score - 26 on admission Maddrey: 42 on admission Hepatitis panel - negative Blood cultures pending Lactulose 3 times daily- continue Boost Nutrition consult Multivitamin, thiamine, folic acid daily Diverticular disease Patient was seen in the ER in the [place] in May. At that time was treated with Augmentin. Currently denies any abdominal pain, and he is tolerating diet, however abnormal findings on CT, as below. He has been treated here with IV cefepime and IV Flagyl. Will discharge on p.o. antibiotics. Patient is to follow-up with PCP, and recommend follow-up with gastroenterology/liver specialist Recommend blood work at the next PCP appointment, to evaluate liver enzymes, and to asses his MELD and Madrey score CT abdomen pelvis 1. There is mild sigmoid diverticulosis with findings suggestive of acute sigmoid diverticulitis. Nonemergent follow-up with colonoscopy is recommended for further evaluation of the underlying colon. 2. No intraperitoneal free air is seen. 3. There is a 1.8 cm pocket of complex fluid or nodularity adjacent to the sigmoid colon. A small abscess is not excluded. This is not well evaluated without IV contrast. 4. The liver is cirrhotic in morphology with evidence of steatosis. 5. Splenomegaly, perisplenic varices, and a splenorenal shunt indicate portal hypertension. 6. Markedly distended gallbladder with evidence of stones/sludge. There is no definitive CT evidence of acute cholecystitis. Clinical and laboratory correlation will be required. 7. Marked and age-advanced coronary artery calcification. Consider nonemergent cardiology follow-up. GI and surgery consulted -Patient with diverticulitis, not likely abscess, also not likely cholecystitis - recommend to continue with IV antibiotics - obtain MRCP MRCP 1. No biliary ductal dilatation. No common bile duct calculi. 2. Suspected cirrhosis. Evidence for portal hypertension including splenomegaly and a splenorenal shunt. 3. Distended gallbladder containing sludge. However, no convincing evidence for acute cholecystitis. 4. Pancreas divisum. No pancreatic ductal dilatation. No peripancreatic fluid. Monitor CBC, CMP, liver labs, ammonia, PT/INR 06/15 - overall patient reports to feel better. MELD score - 23, Madrey score 25 (on admission 26 and 42 respectively) 06/16 - pt feels better. Able to ambulate in room per RN. MELD score 22, Maddrey score 27 06/17 - pt continues to feel well. MELD 25, Maddrey 33 (PT, INR slightly up from yesterday, bili slightly down) 06/18 - patient continues to feel well. MELD score 25, Madrey 30 Alcohol abuse disorder Alcohol cessation advised Patient has finished Valium taper at rehab. Last drink 6 days ago (prior to admission) Patient reports he had last drink last Friday, 8 days ago from today Family is present in the hospital, they are here from [place] They hope patient can return back to [facility] rehab Family is concerned that patient's insight about his condition is poor Psychiatry also consulted to help with alcohol abuse disorder, appreciate their input (6) Tobacco use: Smokes 1ppd Smoking cessation encouraged Denies nicotine patch Full Code as per discussion with pt Follows with Dr Stalin Koo in [place] for routine care Total Time Total Time Spent Total Time Spent (In Minutes): 40 Discharge Plan Discharge Items Patient Disposition: Home - Self-Care Reason For Visit: ALCOHOLIC HEPATITIS Discharge Diagnosis: Alcoholic liver disease, decompensated cirrhosis Possible alcoholic hepatitis Alcohol use disorder Diverticulitis Activity: Per Instructions section Non-emergency contact: Primary Care Provider and Mast Maker Call non-emergency contact if: you have any medication questions and your symptoms worsen Follow-up/Referrals: Stalin Koo MD [Primary Care Provider] - 07/02/22 4:30 pm Diet: Regular Addtl Attending Provider Instructions: Follow-up with primary care doctor, and skin specialist. You should get blood work done within 1 week, to check on your liver function. It is crucial that you completely abstain from alcohol. Follow-up with gastroenterology/hepatology. CD with images obtained in the hospital will be provided for you so you can have skin specialist to review them. Finish antibiotic treatment as prescribed. Do not take Vistaril/hydroxyzine while on antibiotic. Pending Studies at Discharge: No Stand-Alone Forms: My [facility], Smoking Cessation Medications and DC Order Prescriptions: New ciprofloxacin HCl 500 mg tablet 500 mg PO BID 7 Days Qty: 14 0RF metronidazole 500 mg tablet 500 mg PO Q8H 7 Days Qty: 21 0RF Continued multivitamin Tablet 1 tab PO DAILY clonidine HCl 0.1 mg Tablet 0.1 mg PO TID PRN (Reason: Anxiety ) thiamine HCl (vitamin B1) 100 mg Tablet 100 mg PO DAILY hydroxyzine pamoate [Vistaril] 50 mg Capsule 50 mg PO TID PRN (Reason: LOS) folic acid 1 mg Tablet 1 mg PO DAILY Ensure Liquid 1 ea PO BID lactulose 20 gram/30 mL Solution 20 g PO TID Discharge Orders: Discharge Order (Routine); Ordered 06/18/22 Ordered By: Enzo Bauman/Other Patient Handouts: Understanding Cirrhosis, Treating Cirrhosis, Tests for Liver Disease, Diverticulitis Dc Admission Data Admit Date/Time: 06/14/22 18:08 Attending Provider: Enzo Baum Admit Provider: Enzo Baum Primary Care Provider: Stalin Koo Other Providers: Enzo Baum ; Kevin Perez ; Cody Esparza ; Marilyn Meza ; Lashanda Lowry
== END 2022-06-18 14:30 | disposition home or self-care (01) | DRG 433 ==
LOC: ED 10:29 → 2E 18:08